=== PATIENT | female | born 1980 | race Caucasian/White ===

== ENCOUNTER 2016-08-09 17:35 | Emergency (ER) | payer MEDICAID ==
[2016-08-09 18:14] LABS: BASOPHILS 0.3 % (0.0-2.0); EOSINOPHILS 1.6 % (0-7); HEMATOCRIT 33.2 % (36.0-48.0); HEMOGLOBIN 9.6 g/dL (12-16); IMMATURE GRANULOCYTES 0.5 % (0-5); LYMPHOCYTES 21.8 % (15-50); MCH 20.9 pg (26.0-34.0); MCHC 28.9 g/dL (31.0-37.0); MCV 72.3 fL (80.0-100.0); MEAN PLATELET VOLUME 10.3 fL (7.4-10.4); MONOCYTES 8.5 % (2-11); NEUTROPHILS 67.3 % (40-80); RBC 4.59 10x6/uL (4.00-5.40); RDW 17.2 % (11.5-14.5); WBC 14.7 10x3/uL (4.8-10.8)
[2016-08-09 18:15] LABS: PLATELET COUNT 418 10x3/uL (130-400)
[2016-08-09 18:16] LABS: APPEARANCE HAZY (CLEAR); BILIRUBIN NEGATIVE (NEGATIVE); COLOR YELLOW (YELLOW); GLUCOSE NEGATIVE (NEGATIVE); KETONE NEGATIVE (NEGATIVE); LEUKOCYTE ESTERASE TRACE (NEGATIVE); NITRITE NEGATIVE (NEGATIVE); PROTEIN NEGATIVE (NEGATIVE); UROBILINOGEN NORMAL (NORMAL)
[2016-08-09 18:20] LABS: BACTERIA MODERATE /hpf (NONE SEEN); HYALINE CAST OCC /lpf (NONE SEEN); MUCUS <1+ /lpf (NONE SEEN); RED CELLS - URINE RARE /hpf (0-5); WHITE CELLS - URINE OCC /hpf (0-5)
[2016-08-09 18:27] LABS: ALKALINE PHOSPHATASE 59 U/L (46-116); ALT (SGPT) 16 U/L (10-68); BILIRUBIN - TOTAL 0.51 mg/dL (0.2-1.3); CALC OSMOLALITY 276 mosm/kg (275-300); CALCIUM 8.1 mg/dL (8.5-10.1); CARBON DIOXIDE 29.5 mmol/L (21.0-32.0); CHLORIDE - SERUM 101 mmol/L (98-107); CREATININE - SERUM 0.8 mg/dL (0.6-1.3); GLUCOSE 111 mg/dL (74-106); POTASSIUM - SERUM 3.6 mmol/L (3.5-5.1); PROTEIN - SERUM 7.8 g/dL (6.4-8.2); SODIUM 138 mmol/L (136-145); UREA NITROGEN 12 mg/dL (7-18); eGFR NON AFRICAN AMERICAN 86 mL/min (90-120)
== END 2016-08-09 20:45 | disposition home or self-care (01) ==
LOC: D.ER 17:35
PROVIDERS: Emergency Medicine
DX: K43.9 Ventral hernia without obstruction or gangrene (principal)

== ENCOUNTER 2016-09-01 17:15 | Emergency (ER) | payer MEDICAID ==
[2016-09-01 18:12] LABS: APPEARANCE CLEAR (CLEAR); BILIRUBIN NEGATIVE (NEGATIVE); COLOR YELLOW (YELLOW); GLUCOSE NEGATIVE (NEGATIVE); KETONE NEGATIVE (NEGATIVE); LEUKOCYTE ESTERASE NEGATIVE (NEGATIVE); NITRITE NEGATIVE (NEGATIVE); PROTEIN NEGATIVE (NEGATIVE); UROBILINOGEN NORMAL (NORMAL)
[2016-09-01 18:13] LABS: BASOPHILS 0.2 % (0.0-2.0); EOSINOPHILS 1.1 % (0-7); HEMOGLOBIN 9.7 g/dL (12-16); IMMATURE GRANULOCYTES 0.4 % (0-5); LYMPHOCYTES 19.1 % (15-50); MCH 20.5 pg (26.0-34.0); MCHC 29.4 g/dL (31.0-37.0); MCV 69.8 fL (80.0-100.0); MONOCYTES 8.2 % (2-11); PLATELET COUNT 393 10x3/uL (130-400); RBC 4.73 10x6/uL (4.00-5.40); RDW 17.3 % (11.5-14.5); WBC 12.3 10x3/uL (4.8-10.8)
[2016-09-01 19:00] LABS: ALKALINE PHOSPHATASE 58 U/L (46-116); ALT (SGPT) 16 U/L (10-68); CALC OSMOLALITY 277 mosm/kg (275-300); CARBON DIOXIDE 30.8 mmol/L (21.0-32.0); CHLORIDE - SERUM 101 mmol/L (98-107); CREATININE - SERUM 0.9 mg/dL (0.6-1.3); GLUCOSE 95 mg/dL (74-106); POTASSIUM - SERUM 3.7 mmol/L (3.5-5.1); PROTEIN - SERUM 7.9 g/dL (6.4-8.2); SODIUM 140 mmol/L (136-145); UREA NITROGEN 11 mg/dL (7-18); eGFR NON AFRICAN AMERICAN 75 mL/min (90-120)
== END 2016-09-01 21:09 | disposition home or self-care (01) ==
LOC: D.ER 17:15
PROVIDERS: Emergency Medicine Emergency Medical Services
DX: R10.12 Left upper quadrant pain (principal); K43.9 Ventral hernia without obstruction or gangrene; F17.200 Nicotine dependence, unspecified, uncomplicated

== ENCOUNTER → 2016-09-04 14:29 | Outpatient (CLI) | payer MEDICAID | END | disposition home or self-care (01) | LOC: D.MRI 10:30 | DX: R51 Headache (principal) ==

== ENCOUNTER 2016-10-12 05:12 | Emergency (ER) | payer MEDICAID ==
[2016-10-12 05:38] LABS: BASOPHILS 0.3 % (0.0-2.0); EOSINOPHILS 1.5 % (0-7); HEMATOCRIT 29.5 % (36.0-48.0); HEMOGLOBIN 8.4 g/dL (12-16); IMMATURE GRANULOCYTES 0.4 % (0-5); MCH 19.9 pg (26.0-34.0); MCHC 28.5 g/dL (31.0-37.0); MCV 69.7 fL (80.0-100.0); MEAN PLATELET VOLUME 9.9 fL (7.4-10.4); MONOCYTES 7.7 % (2-11); NEUTROPHILS 64.1 % (40-80); PLATELET COUNT 353 10x3/uL (130-400); RBC 4.23 10x6/uL (4.00-5.40); RDW 18.2 % (11.5-14.5); WBC 11.3 10x3/uL (4.8-10.8)
[2016-10-12 06:05] LABS: ALBUMIN 3.5 g/dL (3.4-5.0); ALKALINE PHOSPHATASE 53 U/L (46-116); ALT (SGPT) 13 U/L (10-68); BILIRUBIN - TOTAL 0.39 mg/dL (0.2-1.3); CALC OSMOLALITY 279 mosm/kg (275-300); CALCIUM 7.8 mg/dL (8.5-10.1); CARBON DIOXIDE 26.1 mmol/L (21.0-32.0); CHLORIDE - SERUM 105 mmol/L (98-107); CREATININE - SERUM 0.8 mg/dL (0.6-1.3); GLUCOSE 108 mg/dL (74-106); POTASSIUM - SERUM 3.6 mmol/L (3.5-5.1); SODIUM 140 mmol/L (136-145); UREA NITROGEN 12 mg/dL (7-18); eGFR NON AFRICAN AMERICAN 86 mL/min (90-120)
[2016-10-12 06:11] LABS: CKMB 0.5 U/L (0.0-3.6); CREATINE KINASE 86 UL (21-215); TROPONIN-I < 0.017 ng/mL (0.000-0.060)
== END 2016-10-12 06:20 | disposition home or self-care (01) ==
LOC: D.ER 05:12
PROVIDERS: Surgery
DX: R07.89 Other chest pain (principal); E87.6 Hypokalemia

== ENCOUNTER 2016-11-05 00:23 | Emergency (ER) | payer MEDICAID ==
[2016-11-05 01:03] LABS: HEMATOCRIT 34.4 % (36.0-48.0); HEMOGLOBIN 10.1 g/dL (12-16); LYMPHOCYTES 28.9 % (15-50); MCH 20.4 pg (26.0-34.0); MCHC 29.4 g/dL (31.0-37.0); MCV 69.6 fL (80.0-100.0); MEAN PLATELET VOLUME 9.6 fL (7.4-10.4); NEUTROPHILS 62.5 % (40-80); RBC 4.94 10x6/uL (4.00-5.40); RDW 20.4 % (11.5-14.5); WBC 11.3 10x3/uL (4.8-10.8)
[2016-11-05 01:06] LABS: PLATELET COUNT 447 10x3/uL (130-400)
[2016-11-05 01:07] LABS: APPEARANCE CLEAR (CLEAR); BILIRUBIN NEGATIVE (NEGATIVE); COLOR STRAW (YELLOW); GLUCOSE NEGATIVE (NEGATIVE); KETONE NEGATIVE (NEGATIVE); LEUKOCYTE ESTERASE NEGATIVE (NEGATIVE); NITRITE NEGATIVE (NEGATIVE); PH 6.5 (5.0-6.0); PROTEIN NEGATIVE (NEGATIVE); SPECIFIC GRAVITY 1.015 (1.005-1.020); UROBILINOGEN NORMAL (NORMAL)
[2016-11-05 01:35] LABS: ANION GAP 13.9 mmol/L (8-16); BILIRUBIN - TOTAL 0.42 mg/dL (0.2-1.3); CALCIUM 9.7 mg/dL (8.5-10.1); CARBON DIOXIDE 27.1 mmol/L (21.0-32.0); PROTEIN - SERUM 7.9 g/dL (6.4-8.2)
[2016-11-05 03:37] LABS: T4 THYROXIN - FREE 1.19 ng/dL (0.76-1.46); T4 THYROXINE 9.6 ug/dL (4.7-13.3); THYROID STIMULATING HORMONE 3.81 uIU/mL (0.36-3.74)
== END 2016-11-05 04:40 | disposition home or self-care (01) ==
LOC: D.ER 00:23
PROVIDERS: Emergency Medicine Emergency Medical Services
DX: D64.9 Anemia, unspecified (principal); F17.200 Nicotine dependence, unspecified, uncomplicated

== ENCOUNTER 2016-12-14 22:16 | Emergency (ER) | payer MEDICAID ==
[2016-12-14 23:11] LABS: BASOPHILS 0.3 % (0-2); EOSINOPHILS 1.4 % (0-7); HEMATOCRIT 38.8 % (36.0-48.0); HEMOGLOBIN 11.9 g/dL (12-16); IMMATURE GRANULOCYTES 0.2 % (0-5); LYMPHOCYTES 25.6 % (15-50); MCH 24.3 pg (26.0-34.0); MCHC 30.7 g/dL (31.0-37.0); MCV 79.2 fL (80.0-100.0); MEAN PLATELET VOLUME 10.6 fL (7.4-10.4); MONOCYTES 6.1 % (2-11); NEUTROPHILS 66.4 % (40-80); RDW 22.4 % (11.5-14.5); WBC 11.3 10x3/uL (4.8-10.8)
[2016-12-14 23:13] LABS: PLATELET COUNT 312 10x3/uL (130-400)
[2016-12-14 23:23] LABS: ALBUMIN 3.6 g/dL (3.4-5.0); ALKALINE PHOSPHATASE 54 U/L (46-116); ALT (SGPT) 17 U/L (10-68); CALC OSMOLALITY 273 mosm/kg (275-300); CALCIUM 8.2 mg/dL (8.5-10.1); CARBON DIOXIDE 28.9 mmol/L (21.0-32.0); CHLORIDE - SERUM 103 mmol/L (98-107); CREATININE - SERUM 0.8 mg/dL (0.6-1.3); GLUCOSE 99 mg/dL (74-106); POTASSIUM - SERUM 3.8 mmol/L (3.5-5.1); PROTEIN - SERUM 7.2 g/dL (6.4-8.2); SODIUM 138 mmol/L (136-145); UREA NITROGEN 7 mg/dL (7-18); eGFR NON AFRICAN AMERICAN 86 mL/min (90-120)
== END 2016-12-15 00:29 | disposition home or self-care (01) ==
LOC: D.ER 22:16
PROVIDERS: Family Medicine
DX: E83.51 Hypocalcemia (principal)

== ENCOUNTER 2017-02-26 00:47 | Emergency (ER) | payer MEDICAID ==
[2017-02-26 01:20] LABS: BASOPHILS 0.3 % (0-2); EOSINOPHILS 1.5 % (0-7); HEMATOCRIT 38.7 % (36.0-48.0); HEMOGLOBIN 12.6 g/dL (12-16); IMMATURE GRANULOCYTES 0.8 % (0-5); LYMPHOCYTES 28.4 % (15-50); MCH 27.1 pg (26.0-34.0); MCHC 32.6 g/dL (31.0-37.0); MCV 83.2 fL (80.0-100.0); MEAN PLATELET VOLUME 10.6 fL (7.4-10.4); MONOCYTES 7.2 % (2-11); NEUTROPHILS 61.8 % (40-80); PLATELET COUNT 309 10x3/uL (130-400); RBC 4.65 10x6/uL (4.00-5.40); RDW 14.8 % (11.5-14.5); WBC 11.3 10x3/uL (4.8-10.8)
[2017-02-26 01:29] LABS: ALBUMIN 3.9 g/dL (3.4-5.0); ANION GAP 8.5 mmol/L (8-16); BILIRUBIN - TOTAL 0.71 mg/dL (0.2-1.3); CALCIUM 8.5 mg/dL (8.5-10.1); CARBON DIOXIDE 31.7 mmol/L (21.0-32.0); CREATININE - SERUM 1.1 mg/dL (0.6-1.3); POTASSIUM - SERUM 3.2 mmol/L (3.5-5.1); PROTEIN - SERUM 7.5 g/dL (6.4-8.2)
[2017-02-26 02:08] LABS: APPEARANCE HAZY (CLEAR); BILIRUBIN NEGATIVE (NEGATIVE); COLOR DK YELLOW (YELLOW); GLUCOSE NEGATIVE (NEGATIVE); KETONE NEGATIVE (NEGATIVE); LEUKOCYTE ESTERASE TRACE (NEGATIVE); NITRITE NEGATIVE (NEGATIVE); PROTEIN NEGATIVE (NEGATIVE); UROBILINOGEN NORMAL (NORMAL)
[2017-02-26 02:09] LABS: BACTERIA FEW /hpf (NONE SEEN); MUCUS >1+ /lpf (NONE SEEN); RED CELLS - URINE 0-5 /hpf (0-5); WHITE CELLS - URINE 0-5 /hpf (0-5)
== END 2017-02-26 02:24 | disposition home or self-care (01) ==
LOC: D.ER 00:47
PROVIDERS: Emergency Medicine
DX: R51 Headache (principal); R55 Syncope and collapse; E87.6 Hypokalemia

== ENCOUNTER 2017-03-27 00:04 | Emergency (ER) | payer MEDICAID ==
[2017-03-27 00:56] LABS: BASOPHILS 0.2 % (0-2); EOSINOPHILS 1.8 % (0-7); HEMATOCRIT 37.9 % (36.0-48.0); HEMOGLOBIN 12.1 g/dL (12-16); IMMATURE GRANULOCYTES 0.5 % (0-5); LYMPHOCYTES 29.6 % (15-50); MCH 27.6 pg (26.0-34.0); MCHC 31.9 g/dL (31.0-37.0); MCV 86.5 fL (80.0-100.0); MEAN PLATELET VOLUME 10.8 fL (7.4-10.4); NEUTROPHILS 60.9 % (40-80); PLATELET COUNT 317 10x3/uL (130-400); RBC 4.38 10x6/uL (4.00-5.40); RDW 14.8 % (11.5-14.5); WBC 11.6 10x3/uL (4.8-10.8)
[2017-03-27 01:23] LABS: ALBUMIN 3.5 g/dL (3.4-5.0); ALKALINE PHOSPHATASE 45 U/L (46-116); ALT (SGPT) 17 U/L (10-68); BILIRUBIN - TOTAL 0.31 mg/dL (0.2-1.3); CALC OSMOLALITY 280 mosm/kg (275-300); CALCIUM 8.2 mg/dL (8.5-10.1); CARBON DIOXIDE 30.9 mmol/L (21.0-32.0); CHLORIDE - SERUM 105 mmol/L (98-107); CREATININE - SERUM 1.2 mg/dL (0.6-1.3); GLUCOSE 97 mg/dL (74-106); SODIUM 141 mmol/L (136-145); UREA NITROGEN 13 mg/dL (7-18); eGFR NON AFRICAN AMERICAN 54 mL/min (90-120)
[2017-03-27 01:32] LABS: CREATINE KINASE 61 UL (21-215); TROPONIN-I < 0.017 ng/mL (0.000-0.060)
== END 2017-03-27 02:13 | disposition home or self-care (01) ==
LOC: D.ER 00:04
PROVIDERS: Emergency Medicine
DX: R07.9 Chest pain, unspecified (principal); F17.200 Nicotine dependence, unspecified, uncomplicated

== ENCOUNTER 2017-07-02 13:58 | Emergency (ER) | payer MEDICAID ==
[2017-07-02 14:41] LABS: APPEARANCE CLEAR (CLEAR); BILIRUBIN NEGATIVE (NEGATIVE); COLOR STRAW (YELLOW); GLUCOSE NEGATIVE (NEGATIVE); KETONE NEGATIVE (NEGATIVE); NITRITE NEGATIVE (NEGATIVE); PROTEIN NEGATIVE (NEGATIVE); SPECIFIC GRAVITY 1.015 (1.005-1.020); UROBILINOGEN NORMAL (NORMAL)
[2017-07-02 15:08] LABS: BASOPHILS 0.2 % (0-2); EOSINOPHILS 0.5 % (0-7); HEMATOCRIT 40.6 % (36.0-48.0); HEMOGLOBIN 13.7 g/dL (12-16); IMMATURE GRANULOCYTES 0.4 % (0-5); LYMPHOCYTES 16.8 % (15-50); MCH 29.3 pg (26.0-34.0); MCHC 33.7 g/dL (31.0-37.0); MCV 86.9 fL (80.0-100.0); MEAN PLATELET VOLUME 10.6 fL (7.4-10.4); MONOCYTES 7.9 % (2-11); NEUTROPHILS 74.2 % (40-80); PLATELET COUNT 314 10x3/uL (130-400); RBC 4.67 10x6/uL (4.00-5.40); WBC 14.3 10x3/uL (4.8-10.8)
[2017-07-02 15:40] LABS: ALBUMIN 4.1 g/dL (3.4-5.0); ANION GAP 13.4 mmol/L (8-16); BILIRUBIN - TOTAL 0.47 mg/dL (0.2-1.3); CALCIUM 9.8 mg/dL (8.5-10.1); CARBON DIOXIDE 29.6 mmol/L (21.0-32.0); PROTEIN - SERUM 7.8 g/dL (6.4-8.2)
== END 2017-07-02 16:52 | disposition home or self-care (01) ==
LOC: D.ER 13:58
PROVIDERS: Family Medicine
DX: K21.9 Gastro-esophageal reflux disease without esophagitis (principal); K46.9 Unspecified abdominal hernia without obstruction or gangrene; R11.0 Nausea

== ENCOUNTER 2017-09-10 06:51 | Day surgery (SDC) | payer MEDICAID ==
[2017-09-09 14:25] LABS: BASOPHILS 0.3 % (0-2); EOSINOPHILS 0.5 % (0-7); HEMOGLOBIN 13.7 g/dL (12-16); IMMATURE GRANULOCYTES 0.5 % (0-5); LYMPHOCYTES 17.5 % (15-50); MCH 28.8 pg (26.0-34.0); MCHC 33.4 g/dL (31.0-37.0); MCV 86.1 fL (80.0-100.0); MEAN PLATELET VOLUME 10.6 fL (7.4-10.4); MONOCYTES 3.3 % (2-11); NEUTROPHILS 77.9 % (40-80); PLATELET COUNT 340 10x3/uL (130-400); RBC 4.76 10x6/uL (4.00-5.40); RDW 13.1 % (11.5-14.5); WBC 15.4 10x3/uL (4.8-10.8)
[2017-09-09 14:44] LABS: ANION GAP 9.2 mmol/L (8-16); CALCIUM 9.1 mg/dL (8.5-10.1); CARBON DIOXIDE 30.7 mmol/L (21.0-32.0); CREATININE - SERUM 1.1 mg/dL (0.6-1.3); POTASSIUM - SERUM 3.9 mmol/L (3.5-5.1)
--- NOTE | ~2017-09-10 | OP ---
PATIENT NAME: NATANAEL DREW MEDICAL RECORD: [id number] :80 LOCATION:D.MS [facility] ADMISSION DATE:09/10/17 SURGEON: ROBY CAMPOS MD DATE OF OPERATION: 09/10/2017 PREOPERATIVE DIAGNOSES: 1. Recurrent ventral hernia. 2. Hypertension. 3. Hypothyroidism. 4. Hypocalcemia. 5. Tobacco dependence syndrome. 6. Morbid obesity with a BMI of 39. POSTOPERATIVE DIAGNOSES: 1. Recurrent ventral hernia. 2. Hypertension. 3. Hypothyroidism. 4. Hypocalcemia. 5. Tobacco dependence syndrome. 6. Morbid obesity with a BMI of 39. PROCEDURE: Ventral hernia repair with 15 x [address] mesh. SURGEON: Roby Campos MD REPORT OF PROCEDURE: The patient's abdomen was prepped and draped in sterile fashion. A midline incision was made at the level of the umbilicus and down the midline towards the pubic region. Electrocautery was used to dissect through the subcutaneous tissues and we encountered the large hernia sac. The hernia sac was penetrated and we immediately encountered some small bowel. As we opened up this hernia sac, we could see there was a large opening present. We were able to place a small bowel back into the abdominal cavity. There were a total of 4 hernia defects present. The largest one was right middle and house most of the small bowel, just this one was probably about 5-6 cm in greatest diameter. Just below it, there was about a 3-cm hernia defect in the midline and just above it, there were 2 defects that were right by each other, each one about 2 cm in diameter. This fascial bridges between all of these were opened up and the total length of the fascial defect at this time was 14 cm. We freed up the fascia above and below and took down any fatty tissue, which was present. At this point, we had good clear area for placement of our mesh, 15 x [address] mesh was inserted and sutured down on all 4 sides with multiple interrupted 0 Prolene. After we irrigated out the wound, then we reapproximated the fascia in the midline using running looped 0 PDS. There was good approximation of the fascia. We then irrigated out the wound one last time and assured there was no sign of any bleeding. A 19-Japanese Ole drain was inserted in the right lower quadrant and placed in the subcutaneous pouch. This was sutured into place with 4-0 nylon. We then closed the subcutaneous tissues with interrupted 3-0 Vicryls and the skin was then closed with hany. Prior to closure, we did have a tap block of the fascial tissues using a total of 10 mL of 0.25% Marcaine with epinephrine. The wound was then dressed appropriately. COMPLICATIONS: None. CONDITION: Stable. OPERATIVE REPORT [id number] NATANAEL DREW ANESTHESIA: General endotracheal and local. BLOOD LOSS: 30 mL. TRANSINT:[id number] Voice Confirmation ID: [id number] DOCUMENT ID: [id number] ROBY CAMPOS MD at 0931 CC: TEJA ART MD [id number] DICTATION DATE: 09/10/17 1114 EYELET OPERATOR: 09/10/17 1145 ADM IN [facility] [address] [place] [address]
[~2017-09-10 06:51] MED LIST: ROCALTROL0.25 MCG PO; SYNTHROID125 MCG PO; TUMS X-STR300 MG PO
[2017-09-10 08:21] VITALS: BP 123/84; BMI 39.0
[2017-09-10 10:01] LABS: HCG URINE NEGATIVE (NEGATIVE)
[2017-09-10] MEDS ORDERED: HYDROCODONE-APA1 TAB PO (11:06)
[2017-09-10] MEDS ORDERED: CYCLOBENZAPRINE10 MG PO (11:07)
[2017-09-10 17:55] VITALS: BP 121/77; BMI 38.5
[2017-09-10 22:13] VITALS: BP 113/66
[2017-09-11 01:16] VITALS: BP 130/76
[2017-09-11 05:14] VITALS: BP 115/73
[2017-09-11 08:19] VITALS: BP 139/74
== END 2017-09-11 10:57 | disposition home or self-care (01) ==
LOC: OBSVTIME → D.OPS 06:51 → D.MS 16:32 → OBSVTIME 16:32 → D.MS 09-11 10:57 → D.OPS 09-11 10:57
PROVIDERS: Surgery
DX: K43.9 Ventral hernia without obstruction or gangrene (principal); I10 Essential (primary) hypertension; E03.9 Hypothyroidism, unspecified; E83.51 Hypocalcemia; F17.200 Nicotine dependence, unspecified, uncomplicated; E66.01 Morbid (severe) obesity due to excess calories; Z68.39 Body mass index [BMI] 39.0-39.9, adult; Z01.812 Encounter for preprocedural laboratory examination

== ENCOUNTER 2017-09-11 22:00 | Emergency (ER) | payer MEDICAID ==
[2017-09-10 17:55] VITALS: BMI 38.5
[~2017-09-11 22:00] MED LIST changes: +CYCLOBENZAPRINE10 MG PO; +HYDROCODONE-APA1 TAB PO
[2017-09-11 22:50] LABS: APPEARANCE CLEAR (CLEAR); BILIRUBIN NEGATIVE (NEGATIVE); COLOR YELLOW (YELLOW); GLUCOSE NEGATIVE (NEGATIVE); KETONE NEGATIVE (NEGATIVE); NITRITE NEGATIVE (NEGATIVE); PROTEIN NEGATIVE (NEGATIVE); SPECIFIC GRAVITY 1.025 (1.005-1.020); UROBILINOGEN NORMAL (NORMAL)
[2017-09-11 22:57] LABS: BASOPHILS 0.1 % (0-2); EOSINOPHILS 0.2 % (0-7); HEMOGLOBIN 13.2 g/dL (12-16); IMMATURE GRANULOCYTES 0.5 % (0-5); LYMPHOCYTES 17.6 % (15-50); MCH 28.3 pg (26.0-34.0); MCHC 32.2 g/dL (31.0-37.0); MCV 87.8 fL (80.0-100.0); MEAN PLATELET VOLUME 10.7 fL (7.4-10.4); NEUTROPHILS 74.6 % (40-80); PLATELET COUNT 368 10x3/uL (130-400); RBC 4.67 10x6/uL (4.00-5.40); RDW 13.5 % (11.5-14.5); WBC 19.5 10x3/uL (4.8-10.8)
[2017-09-11 23:09] LABS: BILIRUBIN - TOTAL 0.87 mg/dL (0.2-1.3); CALCIUM 10.3 mg/dL (8.5-10.1); CARBON DIOXIDE 30.6 mmol/L (21.0-32.0); CREATININE - SERUM 1.1 mg/dL (0.6-1.3); POTASSIUM - SERUM 3.6 mmol/L (3.5-5.1); PROTEIN - SERUM 7.9 g/dL (6.4-8.2)
== END 2017-09-12 01:38 | disposition home or self-care (01) ==
LOC: D.ER 22:00
PROVIDERS: Emergency Medicine
DX: G89.18 Other acute postprocedural pain (principal); K21.9 Gastro-esophageal reflux disease without esophagitis

== ENCOUNTER → 2017-09-28 11:15 | Outpatient (CLI) | payer MEDICAID ==
[2017-09-10 17:55] VITALS: BMI 38.5
== END | disposition home or self-care (01) ==
LOC: D.CT 11:15
DX: R10.9 Unspecified abdominal pain (principal)

== ENCOUNTER 2017-09-30 05:30 | Outpatient (CLI) | payer MEDICAID ==
[~2017-09-30] VITALS: Ht 157.5 cm; Wt 100.9 kg
[2017-09-30 07:26] VITALS: BP 111/73; Ht 157.5 cm; Wt 100.9 kg
[2017-09-30 07:45] LABS: HCG URINE NEGATIVE (NEGATIVE)
[2017-09-30 07:45] LABS: BASOPHILS 0.6 % (0-2); HEMATOCRIT 33.7 % (36.0-48.0); HEMOGLOBIN 10.8 g/dL (12-16); IMMATURE GRANULOCYTES 0.6 % (0-5); LYMPHOCYTES 20.8 % (15-50); MCH 27.8 pg (26.0-34.0); MCV 86.6 fL (80.0-100.0); MEAN PLATELET VOLUME 10.3 fL (7.4-10.4); MONOCYTES 8.1 % (2-11); NEUTROPHILS 64.9 % (40-80); PLATELET COUNT 370 10x3/uL (130-400); RBC 3.89 10x6/uL (4.00-5.40); RDW 12.8 % (11.5-14.5); WBC 8.7 10x3/uL (4.8-10.8)
[2017-09-30 08:01] LABS: INR 0.94 (0.85-1.17); PROTIME 12.2 SECONDS (11.6-15.0)
[2017-09-30 08:02] LABS: APTT 34.7 SECONDS (22.8-39.4)
[2017-09-30 08:11] LABS: ANION GAP 12.1 mmol/L (8-16); CALCIUM 9.1 mg/dL (8.5-10.1); CARBON DIOXIDE 29.5 mmol/L (21.0-32.0); CREATININE - SERUM 1.1 mg/dL (0.6-1.3); POTASSIUM - SERUM 3.6 mmol/L (3.5-5.1)
== END 2017-09-30 14:00 | disposition home or self-care (01) ==
LOC: D.SP 05:30
PROVIDERS: Specialist; Surgery
DX: L02.211 Cutaneous abscess of abdominal wall (principal); R10.9 Unspecified abdominal pain; Z01.812 Encounter for preprocedural laboratory examination

== ENCOUNTER 2017-11-16 12:17 | Emergency (ER) | payer MEDICAID ==
[2017-09-30 07:26] VITALS: BMI 40.7
[2017-11-16 13:43] LABS: BASOPHILS 0.3 % (0-2); EOSINOPHILS 1.6 % (0-7); HEMATOCRIT 38.7 % (36.0-48.0); HEMOGLOBIN 12.6 g/dL (12-16); IMMATURE GRANULOCYTES 0.3 % (0-5); LYMPHOCYTES 26.1 % (15-50); MCH 27.8 pg (26.0-34.0); MCHC 32.6 g/dL (31.0-37.0); MCV 85.2 fL (80.0-100.0); MEAN PLATELET VOLUME 10.6 fL (7.4-10.4); MONOCYTES 8.1 % (2-11); NEUTROPHILS 63.6 % (40-80); PLATELET COUNT 335 10x3/uL (130-400); RBC 4.54 10x6/uL (4.00-5.40); RDW 13.1 % (11.5-14.5); WBC 10.6 10x3/uL (4.8-10.8)
[2017-11-16 14:09] LABS: HCG SERUM NEGATIVE (NEGATIVE)
[2017-11-16 14:43] LABS: APPEARANCE CLEAR (CLEAR); COLOR YELLOW (YELLOW)
[2017-11-16 14:44] LABS: BILIRUBIN NEGATIVE (NEGATIVE); GLUCOSE NEGATIVE (NEGATIVE); KETONE NEGATIVE (NEGATIVE); NITRITE NEGATIVE (NEGATIVE); PROTEIN NEGATIVE (NEGATIVE); UROBILINOGEN NORMAL (NORMAL)
[2017-11-16 14:45] LABS: BACTERIA FEW /hpf (NONE SEEN); RED CELLS - URINE OCC /hpf (0-5); WHITE CELLS - URINE OCC /hpf (0-5)
[2017-11-16 16:09] LABS: ALBUMIN 4.1 g/dL (3.4-5.0); ANION GAP 13.7 mmol/L (8-16); BILIRUBIN - TOTAL 0.6 mg/dL (0.2-1.3); CALCIUM 9.6 mg/dL (8.5-10.1); CARBON DIOXIDE 29.5 mmol/L (21.0-32.0); CREATININE - SERUM 1.2 mg/dL (0.6-1.3); POTASSIUM - SERUM 4.2 mmol/L (3.5-5.1); PROTEIN - SERUM 7.6 g/dL (6.4-8.2)
== END 2017-11-16 15:38 | disposition home or self-care (01) ==
LOC: D.ER 12:17
PROVIDERS: Family Medicine; Physician Assistant
DX: R10.32 Left lower quadrant pain (principal); K21.9 Gastro-esophageal reflux disease without esophagitis; F17.200 Nicotine dependence, unspecified, uncomplicated

== ENCOUNTER 2018-01-28 11:30 | Emergency (ER) | payer MEDICAID ==
[~2018-01-28] VITALS: Ht 157.5 cm; Wt 97.3 kg
[2018-01-28 11:35] VITALS: Ht 157.5 cm; Wt 97.3 kg
[2018-01-28 12:07] LABS: BASOPHILS 0.2 % (0-2); EOSINOPHILS 1.2 % (0-7); HEMATOCRIT 39.8 % (36.0-48.0); IMMATURE GRANULOCYTES 0.3 % (0-5); LYMPHOCYTES 20.5 % (15-50); MCH 27.6 pg (26.0-34.0); MCHC 32.7 g/dL (31.0-37.0); MCV 84.5 fL (80.0-100.0); MEAN PLATELET VOLUME 11.1 fL (7.4-10.4); MONOCYTES 6.9 % (2-11); NEUTROPHILS 70.9 % (40-80); PLATELET COUNT 335 10x3/uL (130-400); RBC 4.71 10x6/uL (4.00-5.40); RDW 14.1 % (11.5-14.5); WBC 13.1 10x3/uL (4.8-10.8)
[2018-01-28 12:24] LABS: ALBUMIN 3.9 g/dL (3.4-5.0); ALKALINE PHOSPHATASE 62 U/L (46-116); ALT (SGPT) 15 U/L (10-68); BILIRUBIN - TOTAL 0.47 mg/dL (0.2-1.3); CALC OSMOLALITY 278 mosm/kg (275-300); CALCIUM 8.5 mg/dL (8.5-10.1); CARBON DIOXIDE 32.3 mmol/L (21.0-32.0); CHLORIDE - SERUM 105 mmol/L (98-107); CREATININE - SERUM 0.9 mg/dL (0.6-1.3); GLUCOSE 78 mg/dL (74-106); POTASSIUM - SERUM 3.8 mmol/L (3.5-5.1); PROTEIN - SERUM 7.8 g/dL (6.4-8.2); SODIUM 141 mmol/L (136-145); UREA NITROGEN 9 mg/dL (7-18); eGFR NON AFRICAN AMERICAN 75 mL/min (90-120)
[2018-01-28 12:36] LABS: CKMB 0.1 U/L (0.0-3.6)
[2018-01-28 12:44] LABS: TROPONIN-I < 0.017 ng/mL (0.000-0.060)
[2018-01-28] MEDS ORDERED: OMEPRAZOLE40 MG PO (14:35)
[2018-01-28 15:32] VITALS: BP 131/79
== END 2018-01-28 15:26 | disposition home or self-care (01) ==
LOC: D.ER 11:30
PROVIDERS: Emergency Medicine
DX: R07.9 Chest pain, unspecified (principal); K21.9 Gastro-esophageal reflux disease without esophagitis; R11.0 Nausea; F17.200 Nicotine dependence, unspecified, uncomplicated

== ENCOUNTER → 2018-03-12 09:12 | Outpatient (CLI) | payer MEDICAID ==
[2018-01-28 11:35] VITALS: BMI 39.2
[~2018-03-12 09:12] MED LIST changes: +OMEPRAZOLE40 MG PO
== END | disposition home or self-care (01) ==
LOC: D.US 09:12
DX: R10.12 Left upper quadrant pain (principal)

== ENCOUNTER 2018-05-10 18:53 | Emergency (ER) | payer MEDICAID ==
[~2018-05-10] VITALS: Ht 157.5 cm; Wt 100.0 kg
[2018-05-10 18:58] VITALS: Ht 157.5 cm; Wt 100.0 kg
[2018-05-10 19:38] LABS: BASOPHILS 0.2 % (0-2); EOSINOPHILS 1.4 % (0-7); HEMATOCRIT 38.4 % (36.0-48.0); HEMOGLOBIN 12.4 g/dL (12-16); IMMATURE GRANULOCYTES 0.7 % (0-5); LYMPHOCYTES 20.2 % (15-50); MCH 28.4 pg (26.0-34.0); MCHC 32.3 g/dL (31.0-37.0); MCV 87.9 fL (80.0-100.0); MEAN PLATELET VOLUME 10.8 fL (7.4-10.4); MONOCYTES 7.8 % (2-11); NEUTROPHILS 69.7 % (40-80); PLATELET COUNT 316 10x3/uL (130-400); RBC 4.37 10x6/uL (4.00-5.40); RDW 13.5 % (11.5-14.5); WBC 13.6 10x3/uL (4.8-10.8)
[2018-05-10 19:47] LABS: APPEARANCE CLEAR (CLEAR); BILIRUBIN NEGATIVE (NEGATIVE); COLOR YELLOW (YELLOW); GLUCOSE NEGATIVE (NEGATIVE); KETONE NEGATIVE (NEGATIVE); NITRITE NEGATIVE (NEGATIVE); PROTEIN NEGATIVE (NEGATIVE); UROBILINOGEN NORMAL (NORMAL)
[2018-05-10 19:57] LABS: HCG SERUM NEGATIVE (NEGATIVE)
[2018-05-10 19:59] LABS: ALBUMIN 3.7 g/dL (3.4-5.0); BILIRUBIN - TOTAL 0.25 mg/dL (0.2-1.3); CALCIUM 8.5 mg/dL (8.5-10.1); CARBON DIOXIDE 31.7 mmol/L (21.0-32.0); MAGNESIUM - SERUM 1.9 mg/dL (1.8-2.4); POTASSIUM - SERUM 3.7 mmol/L (3.5-5.1); PROTEIN - SERUM 7.6 g/dL (6.4-8.2)
[2018-05-10 23:00] VITALS: BP 151/85
== END 2018-05-10 23:00 | disposition home or self-care (01) ==
LOC: D.ER 18:53
PROVIDERS: Family Medicine
DX: E83.51 Hypocalcemia (principal); F17.200 Nicotine dependence, unspecified, uncomplicated

== ENCOUNTER 2018-06-15 20:33 | Emergency (ER) | payer MEDICAID ==
[~2018-06-15] VITALS: Ht 157.5 cm; Wt 100.0 kg
[2018-06-15 20:39] VITALS: BP 147/98; Ht 157.5 cm; Wt 100.0 kg
[2018-06-15] MEDS ORDERED: VOLTAREN75 MG PO (21:17)
[2018-06-15] MEDS ORDERED: VIBRAMYCIN 100100 MG PO (21:17)
== END 2018-06-15 21:29 | disposition home or self-care (01) ==
LOC: D.ER 20:33
DX: L03.317 Cellulitis of buttock (principal)

== ENCOUNTER 2018-09-20 02:34 | Observation (INO) | payer MEDICAID ==
[~2018-09-20] VITALS: Ht 157.5 cm; Wt 94.1 kg
--- NOTE | ~2018-09-20 | HEMODYNAMI ---
PATIENT:NATANAEL DREW MEDICAL RECORD: [id number] : 80 [id number] ADMISSION DATE: 09/20/18 Generatedon:09/20/201819:02 Patient name: NATANAEL DREW Patient #: [id number] SSN: : 1980 Date of study: 09/20/2018 Page: Of Hemodynamic Procedure Report Patient Data Patient Demographics Procedure consent was obtained First Name: NATANAEL Gender: Female Last Name: VIKI : 1980 Middle Initial: LANRE Age: 38 year(s) Patient #: [id number] Race: Additional ID: [id number] Contact details Address: [address] [place] [address] State: [place] City: [place] Zip code: [address] Admission Admission Data Admission Date: 09/20/2018 Admission Time: 4:25 Arrival Date: 09/20/2018 Arrival Time: 0:00 Admit Source: Other Insurance Payor: Medicaid Room #: D.1209 Height (in.): 61.81 BSA: 1.94 (m2) Height (cm.): 157 BMI: 38.14 (kg/m2) Weight (lbs.): 207.24 Weight (kg.): 94 Lab Results Lab Result Date: 09/20/2018 Lab Result Time: 0:00 Biochemistry Name Units Result Min Max BUN mg/dl 7 --(*---)-- 7 18 Creatinine mg/dl 1.2 --(---*)-- 0.6 1.3 CBC Name Units Result Min Max Hemoglobin g/dl 10.7 *-(----)-- 13.5 17.5 Procedure Procedure Types Cath Procedure Diagnostic Procedure [facility] w/Coronaries Procedure Description Procedure Date Procedure Date: 09/20/2018 Procedure Start Time: 18:54 Procedure End Time: 18:59 Procedure Staff Name Function Lenin Perez MD Performing Physician Bay Zhao RT Monitor Magy Zimmer RT Scrub Brayan Tim RN Nurse Procedure Data Cath Procedure Fluoroscopy Diagnostic fluoroscopy Total fluoroscopy Time: 0.7 time: 0.7 min min Diagnostic fluoroscopy Total fluoroscopy dose: 288 dose: 288 mGy mGy Contrast Material Contrast Material Type Amount (ml) Isovue 300 31 Entry Location Entry Primary Successful Side Size Upsize Upsize Entry Closure Holguin ccessful Closure Location (Fr) 1 (Fr) 2 (Fr) Remarks Device Remarks Radial Right 6 Fr Mechanical artery Short Compression Estimated blood loss: 10 ml Diagnostic catheters Device Type Used For End Catheter Placement DIAGNOSTIC [place] 110cm 5 Procedure Fr catheter ([id number]) Procedure Complications No complications Procedure Medications Medication Administration Route Dosage Oxygen etCO2 Nasal cannula 2 l/min Heparin Flush Bag added to field 2 bags (1000units/500ml NS) 0.9% NaCl I.V. 100 ml/hr Lidocaine 2% added to field 20 Radial Cocktail added to field 1 syringe (Verapomil 2mg/Nitro 400mcg/Heparin 1500units) Fentanyl I.V. 50 mcg Versed I.V. 1 mg Fentanyl I.V. 50 mcg Versed I.V. 1 mg Radial Cocktail I.A. 1 syringe (Verapomil 2mg/Nitro 400mcg/Heparin 1500units) Fentanyl I.V. 50 mcg Fentanyl I.V. 50 mcg Hemodynamics Rest BSA: 1.94 (m2) HGB: 10.7 (g/dl) O2 Consumption: Estimated: 199.57 (ml/min) O2 Co nsumption indexed: Estimated:102.87 (ml/min/m) Heart Rate: 71 (bpm) Snapshots Pre Cath Intra NCS Post Cath Vital Signs Time Heart Resp SPO2 etCO2 NIBP (mmHg) Rhythm Pain Sedation Rate (ipm) (%) (mmHg) Status Level (bpm) 18:47:01 71 16 95 0 144/93(115) NSR 0 (11) 10(A) , No pain 18:51:13 62 17 100 0 154/92(109) NSR 0 (11) 10(A) , No pain 18:55:27 55 17 100 0 138/86(109) NSR 0 (11) 10(A) , No pain 18:59:06 69 17 98 0 132/80(105) NSR 0 (11) 9(A) , No pain Medications Time Medication Route Dose Verified Delivered Reason Notes Effectiveness by by 18:48:36 Oxygen etCO2 2 l/min Lenin Schmidt Per Nasal Chris Tim RN physician cannula 18:48:45 Heparin Flush added 2 bags Lenin Franky used for Bag to Chris Tim RN procedure (1000units/500ml field NS) 18:48:53 0.9% NaCl I.V. 100 Leniniraj Schmidt Per ml/hr Chris Tim RN physician 18:49:02 Lidocaine 2% added 20ml Lenin Schmidt used for to vial Chris Tim RN procedure field 18:49:09 Radial Cocktail added 1 Lenin Brayan used for (Verapomil to syringe Chris Tim RN procedure 2mg/Nitro field 400mcg/Heparin 1500units) 18:49:16 Fentanyl I.V. 50 mcg Lenin Schmidt for sedation Chris Tim RN 18:49:23 Versed I.V. 1 mg Lenin Schmidt for sedation Chris Tim RN 18:51:02 Fentanyl I.V. 50 mcg Lenin Schmidt for sedation Chris Tim RN 18:51:06 Versed I.V. 1 mg Lenin Schmidt for sedation Chris Tim RN 18:56:06 Radial Cocktail I.A. 1 Lenin Phelps for (Verapomil syringe Chris Perez MD vasodilation 2mg/Nitro 400mcg/Heparin 1500units) 18:56:12 Fentanyl I.V. 50 mcg Lenin Schmidt for sedation Chris Tim RN 18:56:57 Fentanyl I.V. 50 mcg Lenin Schmidt for sedation Chris Tim RN Procedure Log Time Note 18:28:00 Informed consent obtained and on chart 18:28:21 Brayan Tim RN sent for patient. Start room use. 18:28:22 Time tracking: Regular hours (M-F 7:00 - 5:00) 18:28:26 Plan of Care:Hemodynamics will remain stable., Cardiac rhythm will remain stable., Comfort level will be maintained., Respiratory function will remain adequate., Patient/ family verbilizes understanding of procedure., Procedure tolerated without complication., Recovers from procedure without complications.. 18:37:03 Lab Result : BUN 7 mg/dl 18:37:03 Lab Result : Hemoglobin 10.7 g/dl 18:37:03 Lab Result : Creatinine 1.2 mg/dl 18:38:21 Admit Source: Other 18:38:27 Patient Height : 61.81 inches 18:38:51 Patient Weight : 207.24 lbs 18:38:55 Arrival Date: 09/20/2018 12:00:00 AM 18:39:01 Insurance Payor : Medicaid 18:40:08 Patient received from Med II to CCL 1 Alert and oriented. Tansferred to table in Supine position. 18:40:09 Warm blankets applied, and elba hugger turned on for patient comfort. 18:40:09 Correct patient and procedure confirmed by team. 18:40:10 ECG and BP/O2 sat monitors applied to patient. 18:45:42 Vital chart was started 18:45:43 Baseline sample Acquired. 18:45:46 Rhythm: sinus rhythm 18:45:47 Full Disclosure recording started 18:45:51 H&P Date Dictated: 09/20/2018 New H&P dictated by physician.. 18:45:53 Pre-procedure instructions explained to patient. 18:45:53 Pre-op teaching completed and patient verbalized understanding. 18:45:54 Family in waiting room. 18:45:56 Patient NPO since Midnight. 18:45:58 Is the patient allergic to Iodine/contrast media? No. 18:45:59 Was the patient premedicated? No 18:46:02 Is patient on blood thinner?No 18:46:04 Patient diabetic? No. 18:46:06 Previous problem with sedation/anesthesia? No ? 18:46:08 Snore? Yes 18:46:09 Sleep apnea? No 18:46:10 Deviated septum? No 18:46:10 Opens mouth fully? Yes 18:46:11 Sticks out tongue? Yes 18:46:13 Airway obstruction? No ? 18:46:16 Dentures? Yes out 18:46:20 Pre procedure: right dorsailis pedis pulse 2+ Normal; easily identifiable; not easily obliterated 18:46:22 Pre procedure: left dorsailis pedis pulse 2+ Normal; easily identifiable; not easily obliterated 18:46:24 Patient pain scale 0/10 ?. 18:46:35 IV patent on arrival in Left upper arm with 0.9% NaCl at [facility]. 18:46:37 Lab results completed and on chart. 18:46:41 Right Radial & Right Groin area was prepped with chlora-prep and draped in sterile fashion 18:46:42 Alarms reviewed by R. N. 18:46:42 Sharps counted by scrub and verified by R.N. 18:46:44 Physician arrived 18:46:44 --------ALL STOP TIME OUT------ 18:46:45 Final Timeout: patient, procedure, and site verified with staff and physician. All members of the team are in agreement. 18:46:46 Right Radial & Right Groin site verified by team. 18:46:50 Maximum allowable Isovue 370 dose 300ml. Physician notified. (300ml for normal creatinines. For patients with creatinine of 1.7 or higher multiply weight(kg) x 5 divided by creatinine.) 18:46:54 Fire Safety Assessment: A--An alcohol-based skin anteseptic being used preoperatively., C--Open oxygen or nitrous oxide is being used., D--An ESU, laser, or fiber-optic light is being used. 18:46:58 Physical assessment completed. ASA score P 2 - A patient with mild systemic disease as per Lenin Perez MD. 18:47:01 Sedation plan: IV Moderate Sedation Medication:Versed, Fentanyl 18:48:36 Oxygen 2 l/min etCO2 Nasal cannula was administered by Brayan Tim RN; Per physician; 18:48:45 Heparin Flush Bag (1000units/500ml NS) 2 bags added to field was administered by Brayan Tim RN; used for procedure; 18:48:53 0.9% NaCl 100 ml/hr I.V. was administered by Brayan Tim RN; Per physician; 18:49:02 Lidocaine 2% 20ml vial added to field was administered by Brayan Tim RN; used for procedure; 18:49:09 Radial Cocktail (Verapomil 2mg/Nitro 400mcg/Heparin 1500units) 1 syringe added to field was administered by Brayan Tim RN; used for procedure; 18:49:16 Fentanyl 50 mcg I.V. was administered by Brayan Tim RN; for sedation; 18:49:23 Versed 1 mg I.V. was administered by Brayan Tim RN; for sedation; 18:51:02 Fentanyl 50 mcg I.V. was administered by Brayan Tim RN; for sedation; 18:51:06 Versed 1 mg I.V. was administered by Brayan Tim RN; for sedation; 18:54:03 Zero performed for pressure channel P1 18:54:08 Procedure started. 18:54:12 Local anesthetic to right radial artery with Lidocaine 2% by Lenin Perez MD.INITIAL ACCESS ONLY 18:56:06 Radial Cocktail (Verapomil 2mg/Nitro 400mcg/Heparin 1500units) 1 syringe I.A. was administered by Lenin Perez MD; for vasodilation; 18:56:12 Fentanyl 50 mcg I.V. was administered by Brayan Tim RN; for sedation; 18:56:23 A 6 Fr Short sheath was inserted into the Right Radial artery 18:56:28 Use device set Radial Dx or PCI 18:56:30 ACIST Manifold (99271) opened to sterile field. 18:56:31 Tegaderm 4 x 4 (1626W) opened to sterile field. 18:56:32 ACIST Hand Control (36842) opened to sterile field. 18:56:33 ACIST Syringe (64079) opened to sterile field. 18:56:33 Medline Cath Pack ([id number]) opened to sterile field. 18:56:33 Bag Decanter (2002) opened to sterile field. 18:56:34 DIAGNOSTIC WIRE .035 260cm J wire (254239) opened to sterile field. 18:56:34 MBrace Wrist Support ([id number]) opened to sterile field. 18:56:36 SHEATH 6FR Slender (80-9032) opened to sterile field. 18:56:39 A DIAGNOSTIC [place] 110cm 5 Fr catheter (887738) was advanced over the wire and used for Procedure. 18:56:44 LV angiography performed. 18:56:45 LV gram done using ALFARO 18:56:50 EF : 60 % 18:56:53 Injector settings: Ml/sec: 7, Volume: 15, 18:56:57 Fentanyl 50 mcg I.V. was administered by Brayan Tim RN; for sedation; 18:57:11 LCA angiography performed. 18:57:13 RCA angiography performed. 18:57:28 Catheter removed. 18:57:29 TR BAND Standard ([id number]) opened to sterile field. 18:57:40 Sheath removed intact; hemostasis achieved with Mechanical Compression to the Right Radial artery. 18:57:43 Procedure ended.(Physican Out) 18:58:12 Fluoroscopy time 00.70 minutes. 18:58:16 Fluoroscopy dose: 288 mGy 18:58:16 Flurop Dose total: 288 18:58:21 Contrast amount:Isovue 300 31ml. 18:58:22 Sharps counted by scrub and verified by R.N. 18:58:26 TR band inflated with 10cc of air. 18:58:31 Insertion/operative site no bleeding no hematoma. 18:58:33 Post Procedure Pulses reassessed and unchanged 18:58:36 Post-procedure physical assessment completed. ASA score P 2 - A patient with mild systemic disease as per Lenin Perez MD. 18:58:38 Post procedure rhythm: unchanged. 18:58:40 Estimated blood loss: 10 ml 18:58:43 Post procedure instruction explained to patient.Patient verbalizes understanding. 18:58:43 Patient needs reinforcement of post procedure teaching. 18:58:49 Procedure and supply charges have been captured, reviewed, submitted and are correct. 18:58:52 Procedure Complication : No complications 18:58:54 Vital chart was stopped 18:58:55 See physician's report for complete and final results. 18:58:59 Report given to Other. 18:59:02 Patient transfered to Other with Bed. 18:59:04 Procedure ended. 18:59:04 Full Disclosure recording stopped 18:59:44 End room use (Document Last) Device Usage Item Name Manufacture Quantity Catalog Hospital Part Current Minimal Lot# / Number Charge Number Stock Stock Serial# Code ACIST Acist 1 95905 404521 713207 097163 5 Manifold Medical (30882) Systems Inc Tegaderm 4 3M 1 1626W 835317 499735 850640 5 x 4 (1626W) ACIST Hand Acist 1 11059 787260 679920 801310 5 Control Medical (51414) Systems Inc ACIST Acist 1 35677 740475 817417 082410 20 Syringe Medical (39315) Systems Inc Medline Medline 1 [id number] 644293 67754 159260 5 Cath Pack ([id number]) Bag Microtek 1 2001S 9423717 54868 197057 5 Decanter Medical Inc. (2002S) DIAGNOSTIC [facility] [place] 1 552329 677878 582129 770235 30 WIRE .035 260cm J wire (498427) MBrace Advanced 1 140-0250-00 589941 74415 135751 5 Wrist Vascular Support Dynamics (275895033) SHEATH 6FR Terumo 1 [id number] 404358 268387 819814 5 Slender (80-1060) DIAGNOSTIC Terumo 1 40-8583 143711 935061 727498 5 [place] 110cm 5 Fr catheter (537190) TR BAND Terumo 1 [id number] 206177 730104 454340 40 Standard ([id number]) Signature Audit [place] Stage Time Signature Unsigned Intra-Procedure 09/20/2018 Bay Zhao 7:01:59 PM RT(R) Signatures Monitor : Bay Zhao RT Signature : Date : Time : [place] [address] [place] [address]
--- NOTE | ~2018-09-20 | EC ---
PATIENT:NATANAEL DREW DATE OF SERVICE: 09/20/18 SEX: F MEDICAL RECORD: [id number] DATE OF : [birth year] LOCATION:D.M3 D.120 AGE OF PATIENT: 38 ADMISSION DATE: 09/20/18 REFERRING PHYSICIAN: INTERPRETING PHYSICIAN: ISAAC PEREZ MD ECHOCARDIOGRAM REPORT ECHO CHARGES 4 ECHO COMPLETE Date: 09/20/18 CLINICAL DIAGNOSIS: SOB/HTN ECHOCARDIOGRAPHIC MEASUREMENTS (adult normal given) AC root (d.<3.7cm) 2.9 cm LV Septum d (<1.2 cm> 1.5 cm Valve Excursion 1.9 cm LV Septum (systole) 1.4 cm Left Atria (s.<4.0cm> 3.2 cm LVPW d(<1.2cm) 1.7 cm RV (d.<2.3cm) 3.5 cm LVPW (sytole) 1.7 cm LV diastole(<5.6CM) 4.4 cm MV E-F(>70mm/sec) cm LV systole 2.7 cm LVOT Diameter 2.0 cm MV exc.(>10mm) 1.5 cm Est.ejection fraction (50-75%) % DOPPLER: LVIT cm/sec A 59.0 cm/sec E 730 cm/sec LA cm/sec RVSP 17 mmHg LVOT 111 cm/sec AOP1/2T m/s Asc. Ao 137 cm/sec RVOT 93 cm/sec RA cm/sec PA 96 cm/sec AV Gradient Peak 7.51 mmHg AV Mean 4.04 mmHg AV Area 2.7 cm MV Gradient Peak 4.45 mmHg MV Mean 1.85 mmHg MV Area cm COMMENTS: Cashier And Waiter/Waitress: Liana LAU Button Tufter: 1 Dr. Perez TAPE# PACS Pericardial Effusion N DATE OF SERVICE: 09/20/2018 FINDINGS: 1. Left ventricular chamber size is within normal limits. Left ventricular systolic function is normal. Overall ejection fraction is estimated at 60%. 2. Left atrium, right atrium, and right ventricle chamber sizes are within normal limit. 3. Valvular structures have normal structure and motion. 4. Doppler interrogation reveals no significant valvular insufficiency or stenosis. ECHOCARDIOGRAM REPORT [id number] NATANAEL DREW 5. No evidence of pericardial effusion or left ventricular thrombus. TRANSINT:[id number] Voice Confirmation ID: [id number] DOCUMENT ID: [id number] ISAAC PEREZ MD CC: [id number] DICTATION DATE: 09/20/18 1633 RAILCAR SWITCHMAN: 09/20/18 1904 ADM IN [facility] [address] [place] [address]
--- NOTE | ~2018-09-20 | OP ---
PATIENT NAME: NATANAEL DREW MEDICAL RECORD: [id number] :80 LOCATION:D.M3 D.1209 ADMISSION DATE:09/20/18 SURGEON: ISAAC CASON MD DATE OF OPERATION: 09/20/2018 PROCEDURES: 1. Left heart catheterization. 2. Selective coronary angiography. 3. Left ventriculogram. INDICATIONS: Chest discomfort. PROCEDURE IN DETAIL: After informed consent was obtained and after a detailed description of the risks and benefits as well as alternative therapies, the patient elected to proceed with angiogram and heart catheterization. The right radial area was prepped and draped in normal sterile fashion. Right radial artery was cannulated via modified Seldinger technique with placement of 5-Namibian sheath. All catheters were exchanged through this sheath. FINDINGS: Left ventriculogram was performed in standard 30-degree ALFARO view, reveals good cardiac wall motion throughout all segments. Overall ejection fraction estimated at 60%. SELECTIVE CORONARY ANGIOGRAPHY: Left main, left anterior descending, left circumflex, and right coronary artery are all smooth-walled vessels with no angiographic evidence of coronary artery disease. OVERALL IMPRESSION: 1. No angiographic evidence of coronary artery disease. 2. Normal left heart pressures. 3. Normal left ventricular systolic function. 4. Chest pain is noncardiac in etiology. 5. No further cardiac workup needs to be ascertained. TRANSINT:[id number] Voice Confirmation ID: [id number] DOCUMENT ID: [id number] ISAAC CASON MD CC: [id number] DICTATION DATE: 09/20/18 190 WAITER: 09/21/18 0120 DIS IN 09/20/18 [facility] [address] [place] [address]
--- NOTE | ~2018-09-20 | DS ---
PATIENT:NATANAEL DREW :80 MEDICAL RECORD: [id number] DISCHARGE SUMMARY ADMISSION DATE: 09/20/18 DISCHARGE DATE: 09/20/18 DATE OF DISCHARGE: 09/20/2018 DIAGNOSIS: Noncardiac chest pain. HISTORY OF PRESENT ILLNESS: Mrs. Drew presents with chest pain; however, cardiac catheterization is normal. Discharged home with no cardiac followup necessary. Follow up with her primary care physician. TRANSINT:[id number] Voice Confirmation ID: [id number] DOCUMENT ID: [id number] ISAAC CASON MD CC: [id number] DICTATION DATE: 09/20/18 190 HEPATOLOGIST: 09/21/18 0730 DIS IN 09/20/18 [place] [id number] [place] [id number]
[~2018-09-20 02:34] MED LIST changes: +VIBRAMYCIN 100100 MG PO; +VOLTAREN75 MG PO
[2018-09-20 03:13] LABS: BASOPHILS 0.2 % (0-2); EOSINOPHILS 1.4 % (0-7); HEMATOCRIT 34.1 % (36.0-48.0); HEMOGLOBIN 10.7 g/dL (12-16); IMMATURE GRANULOCYTES 0.5 % (0-5); LYMPHOCYTES 25.9 % (15-50); MCH 25.1 pg (26.0-34.0); MCHC 31.4 g/dL (31.0-37.0); MEAN PLATELET VOLUME 10.7 fL (7.4-10.4); MONOCYTES 8.2 % (2-11); NEUTROPHILS 63.8 % (40-80); PLATELET COUNT 328 10x3/uL (130-400); RBC 4.26 10x6/uL (4.00-5.40); RDW 15.4 % (11.5-14.5); WBC 11.8 10x3/uL (4.8-10.8)
[2018-09-20 03:18] LABS: APTT 30.1 SECONDS (22.8-39.4); INR 1.04 (0.85-1.17); PROTIME 13.1 SECONDS (11.6-15.0)
[2018-09-20 03:25] LABS: ALBUMIN 3.6 g/dL (3.4-5.0); ALKALINE PHOSPHATASE 57 U/L (46-116); ALT (SGPT) 10 U/L (10-68); BILIRUBIN - TOTAL 0.32 mg/dL (0.2-1.3); CALC OSMOLALITY 282 mosm/kg (275-300); CALCIUM 9.5 mg/dL (8.5-10.1); CARBON DIOXIDE 28.3 mmol/L (21.0-32.0); CHLORIDE - SERUM 105 mmol/L (98-107); CREATININE - SERUM 1.2 mg/dL (0.6-1.3); GLUCOSE 90 mg/dL (74-106); POTASSIUM - SERUM 3.6 mmol/L (3.5-5.1); PROTEIN - SERUM 7.4 g/dL (6.4-8.2); SODIUM 143 mmol/L (136-145); UREA NITROGEN 7 mg/dL (7-18); eGFR NON AFRICAN AMERICAN 53 mL/min (90-120)
[2018-09-20 03:35] VITALS: BP 147/98
[2018-09-20 03:36] LABS: CKMB 0.1 U/L (0.0-3.6); CREATINE KINASE 42 UL (21-215); MAGNESIUM - SERUM 1.9 mg/dL (1.8-2.4)
[2018-09-20 03:37] LABS: TROPONIN-I < 0.017 ng/mL (0.000-0.060)
[2018-09-20 03:43] LABS: HCG SERUM NEGATIVE (NEGATIVE)
--- NOTE | 2018-09-20 03:50 | NUR ---
PT C/O BILAT ARM NUMBNESS AND TINGLING DOWN TO HANDS. PT BECAME TACHYCARDIC DURING EPISODE. PT INSTRUCTED TO TAKE DEEP BREATHS. EDP NOTIFIED.
--- NOTE | 2018-09-20 03:59 | NUR ---
PT HAS CALMED DOWN AT THIS TIME. PT FAMILY AT BEDSIDE.
--- NOTE | 2018-09-20 05:36 | NUR ---
ADDED PATIENT TO TELE WAIT LIST. NO MONITORS AVAILABLE AT THIS TIME.
[2018-09-20] MEDS ORDERED: VITAMIN D31000 UNIT PO (05:58)
[2018-09-20] MEDS ORDERED: FERROUS SULFAT325 MG PO ×2 (05:59)
[2018-09-20 06:10] VITALS: BP 130/89; Ht 157.5 cm; Wt 94.1 kg
[2018-09-20 07:54] VITALS: BP 111/63
[2018-09-20 09:01] LABS: HCG SERUM NEGATIVE (NEGATIVE)
[2018-09-20] MEDS ORDERED: LEVOTHYROXINE137 MCG PO (09:07)
--- NOTE | 2018-09-20 10:54 | HP ---
PATIENT: NATANAEL DREW MEDICAL RECORD: [id number] ACCOUNT: [id number] LOCATION:[address] : [birth year] ADMISSION DATE: 09/20/18 PCP: VIGNESH PECK MD HISTORY AND PHYSICAL EXAMINATION DIAGNOSES: 1. Chest pain compatible with angina. 2. Abnormal stress test. 3. Anxiety disorder. 4. Family history of coronary artery disease. 5. Hypothyroidism, on replacement. HISTORY OF PRESENT ILLNESS: Mrs. Drew has no history of ischemic heart disease. She has been having chest discomfort. She saw Dr. Holt and test was performed, this was abnormal. She now continues to have chest pain. PHYSICAL EXAMINATION: GENERAL APPEARANCE: Well-nourished, well-developed, appears stated age. Level of distress, comfortable. PSYCHIATRIC: Mental status, alert, normal affect. Orientation, oriented to time, place and person. EYES: Lids and conjunctiva, noninjected. No discharge, no pallor. ENT: Lips, teeth, gums, normal dentition. Oropharynx, no cyanosis, no pallor. NECK: Carotid arteries, bilateral normal upstroke, no bruits, no thrills. JUGULAR VEINS: No jugular venous pressure or distention. CERVICAL LYMPH NODES: Nontender, nonenlarged. THYROID: Not enlarged. Nontender. No nodules. LUNGS: Respiratory effort, unlabored. CHEST: Normal curvature. No thoracic deformity. No chest wall tenderness. Percussion, resonant. Auscultation, clear. No wheezes, no rales, no rhonchi. CARDIOVASCULAR: Precordial exam, nondisplaced. No heaves or pericardial thrills. Rate and rhythm, regular. Heart sounds, normal S1, normal S2. No S3, no gallop, no rub. Systolic murmur, not heard. Diastolic murmur, not heard. EXTREMITIES: No cyanosis, no edema. Peripheral pulses, full and equal in all extremities, except as noted. No bruits appreciated. ABDOMEN: Soft, nondistended. Normal aorta. No bruit. Nontender. No masses. Liver, nontender, no hepatomegaly. Spleen, nontender, no splenomegaly. MUSCULOSKELETAL: No joint tenderness. No joint swelling. No erythema. NEUROLOGICAL: Normal gait, normal strength, normal tone. SKIN: Warm and dry. OVERALL IMPRESSION: Chest pain in an escalating fashion. We will proceed with coronary angiography. Further care depends upon the findings of the angiography. TRANSINT:[id number] Voice Confirmation ID: [id number] DOCUMENT ID: [id number] HISTORY AND PHYSICAL [id number] NATANAEL DREW JEFFREY MD at 1054 CC: [id number] DICTATION DATE: 09/20/1837 STUFFED CASING TIER: 09/20/18 0849 ADM IN [place] [address] [place] [address]
[2018-09-20 11:17] VITALS: BP 110/76
[2018-09-20 15:28] VITALS: BP 123/79
--- NOTE | 2018-09-20 16:58 | NUR ---
EXPLORATION MANAGER CALLED TO PREOP PT. UPON FLUSHING PT PIV TO LEFT FA, NOTICED IT WAS INFILTRATED. REMOVED LEFT FA PIV WITH CATHETER TIP INTACT. RESITED 20G PIV TO PT LEFT UPPER ARM X2 ATTEMPTS. PT PRE-OP ORDERED. DENIES PAIN AT THIS TIME, DENIES ANY OTHER NEEDS AT THIS TIME, WILL CONT TO FOLLOW PLAN OF CARE
[2018-09-20 21:01] VITALS: BP 123/82
--- NOTE | 2018-09-20 22:15 | NUR ---
PT SIGNED D/C PAPER, YAKOV STOKES GIVEN INSTRUCTION FOR HOME CARE PT'S CATH SITE. PT DISCHARGED TO HOME.
== END 2018-09-20 22:50 | disposition home or self-care (01) ==
LOC: D.ER 02:34 → D.EDHOLD 04:25 → OBSVTIME 04:25 → D.M3 04:25 → D.M2 04:54 → D.M3 05:12
PROVIDERS: Emergency Medicine; ADMIT Internal Medicine Interventional Cardiology; ATTEND Internal Medicine Interventional Cardiology
DX: R07.89 Other chest pain (principal); R94.39 Abnormal result of other cardiovascular function study; E03.9 Hypothyroidism, unspecified; F41.9 Anxiety disorder, unspecified; Z82.49 Family history of ischemic heart disease and other diseases of the circulatory system

== ENCOUNTER 2018-10-03 23:59 | Emergency (ER) | payer MEDICAID ==
[~2018-10-03] VITALS: Ht 157.5 cm; Wt 93.0 kg
[~2018-10-03 23:59] MED LIST changes: +FERROUS SULFAT325 MG PO; +LEVOTHYROXINE137 MCG PO; +VITAMIN D31000 UNIT PO
[2018-10-04 00:01] VITALS: Ht 157.5 cm; Wt 93.0 kg
[2018-10-04] MEDS ORDERED: VIBRAMYCIN 100100 MG PO (01:20)
[2018-10-04] MEDS ORDERED: ALBUTEROL SULF8.5 GM INH (01:20)
[2018-10-04] MEDS ORDERED: MEDROL DOSE PACK4 MG PO (01:20)
[2018-10-04] MEDS ORDERED: TESSALON PERLE100 MG PO (01:22)
[2018-10-04 01:35] LABS: BASOPHILS 0.2 % (0-2); EOSINOPHILS 1.3 % (0-7); HEMATOCRIT 31.7 % (36.0-48.0); HEMOGLOBIN 9.8 g/dL (12-16); IMMATURE GRANULOCYTES 0.4 % (0-5); LYMPHOCYTES 25.3 % (15-50); MCH 24.8 pg (26.0-34.0); MCHC 30.9 g/dL (31.0-37.0); MCV 80.3 fL (80.0-100.0); MEAN PLATELET VOLUME 10.6 fL (7.4-10.4); MONOCYTES 6.8 % (2-11); PLATELET COUNT 370 10x3/uL (130-400); RBC 3.95 10x6/uL (4.00-5.40); RDW 16.1 % (11.5-14.5); WBC 12.9 10x3/uL (4.8-10.8)
[2018-10-04 01:48] LABS: ALBUMIN 3.4 g/dL (3.4-5.0); ANION GAP 12.3 mmol/L (8-16); BILIRUBIN - TOTAL 0.35 mg/dL (0.2-1.3); CALCIUM 9.8 mg/dL (8.5-10.1); CARBON DIOXIDE 31.8 mmol/L (21.0-32.0); CREATININE - SERUM 1.2 mg/dL (0.6-1.3); PROTEIN - SERUM 6.9 g/dL (6.4-8.2)
[2018-10-04 01:54] LABS: POTASSIUM - SERUM 3.1 mmol/L (3.5-5.1)
[2018-10-04 02:34] VITALS: BP 152/90
== END 2018-10-04 02:34 | disposition home or self-care (01) ==
LOC: D.ER 23:59
PROVIDERS: Emergency Medicine
DX: J18.9 Pneumonia, unspecified organism (principal); R07.9 Chest pain, unspecified

== ENCOUNTER → 2018-10-07 14:04 | Outpatient (CLI) | payer MEDICAID ==
[2018-10-04 00:01] VITALS: BMI 37.9
[~2018-10-07 14:04] MED LIST changes: +ALBUTEROL SULF8.5 GM INH; +MEDROL DOSE PACK4 MG PO; +TESSALON PERLE100 MG PO
--- NOTE | 2018-10-12 14:26 | EC ---
PATIENT:NATANAEL DREW DATE OF SERVICE: 10/07/18 SEX: F MEDICAL RECORD: [id number] DATE OF : [birth year] LOCATION:D.[facility] AGE OF PATIENT: 38 ADMISSION DATE: 10/07/18 REFERRING PHYSICIAN: INTERPRETING PHYSICIAN: JENAE PEREZ MD ECHOCARDIOGRAM REPORT ECHO CHARGES 4 ECHO COMPLETE Date: 10/07/18 CLINICAL DIAGNOSIS: MURMUR/CP/HTN ECHOCARDIOGRAPHIC MEASUREMENTS (adult normal given) AC root (d.<3.7cm) 2.8 cm LV Septum d (<1.2 cm> 1.0 cm Valve Excursion 2.0 cm LV Septum (systole) 1.4 cm Left Atria (s.<4.0cm> 3.5 cm LVPW d(<1.2cm) 1.0 cm RV (d.<2.3cm) 2.8 cm LVPW (sytole) 1.8 cm LV diastole(<5.6CM) 5.4 cm MV E-F(>70mm/sec) cm LV systole 3.2 cm LVOT Diameter 1.8 cm MV exc.(>10mm) cm Est.ejection fraction (50-75%) % DOPPLER: LVIT cm/sec A 107 cm/sec E 120 cm/sec LA cm/sec RVSP 26.1 mmHg LVOT 109 cm/sec AOP1/2T m/s Asc. Ao 142 cm/sec RVOT 84.0 cm/sec RA cm/sec PA 98.0 cm/sec AV Gradient Peak 8.1 mmHg AV Mean 4.2 mmHg AV Area 1.9 cm MV Gradient Peak 5.0 mmHg MV Mean 2.2 mmHg MV Area cm COMMENTS: OP - HC Solar Energy Systems Engineer: Lyric THOMASOE Electronics Supervisor: 3 Dr. Holt TAPE# PACS Pericardial Effusion N DATE OF SERVICE: 10/07/2018 Adequate 2-D, color-flow and spectral Doppler, and M-mode. No LVH. LV internal dimensions are normal. Wall motion is normal. EF is greater than or equal to 55%. Aortic valve is tricuspid. No evidence of stenosis by Doppler interrogation. Left atrium is normal at 3.5 cm. Mitral valve shows no prolapse. Trace MR. Right-sided chambers are normal. Trace TR. TRANSINT:[id number] Voice Confirmation ID: [id number] DOCUMENT ID: [id number] ECHOCARDIOGRAM REPORT [id number] NATANAEL DREW,JENAE Mckinney MD at 1426 CC: [id number] DICTATION DATE: 10/07/18 1548 DIRECTOR HEMATOLOGY: 10/07/18 1709 DEP CLI 10/07/18 [place] [id number] [place] [id number]
== END | disposition home or self-care (01) ==
LOC: D.HCCARDIO 14:04
PROVIDERS: ATTEND Internal Medicine Interventional Cardiology
DX: R01.1 Cardiac murmur, unspecified (principal)

== ENCOUNTER 2018-10-31 07:56 | Emergency (ER) | payer MEDICAID ==
[~2018-10-31] VITALS: Ht 157.5 cm; Wt 93.2 kg
[2018-10-31 07:58] VITALS: Ht 157.5 cm; Wt 93.2 kg
[2018-10-31 08:16] LABS: BASOPHILS 0.4 % (0-2); EOSINOPHILS 2.1 % (0-7); HEMATOCRIT 37.2 % (36.0-48.0); HEMOGLOBIN 11.8 g/dL (12-16); IMMATURE GRANULOCYTES 0.3 % (0-5); LYMPHOCYTES 25.1 % (15-50); MCH 25.6 pg (26.0-34.0); MCHC 31.7 g/dL (31.0-37.0); MCV 80.7 fL (80.0-100.0); MEAN PLATELET VOLUME 10.4 fL (7.4-10.4); MONOCYTES 8.3 % (2-11); NEUTROPHILS 63.8 % (40-80); PLATELET COUNT 340 10x3/uL (130-400); RBC 4.61 10x6/uL (4.00-5.40); WBC 9.1 10x3/uL (4.8-10.8)
[2018-10-31 08:28] LABS: INR 1.05 (0.85-1.17); PROTIME 13.2 SECONDS (11.6-15.0)
[2018-10-31 08:34] LABS: ALBUMIN 3.6 g/dL (3.4-5.0); ANION GAP 9.6 mmol/L (8-16); BILIRUBIN - TOTAL 0.72 mg/dL (0.2-1.3); CALCIUM 10.2 mg/dL (8.5-10.1); CARBON DIOXIDE 31.6 mmol/L (21.0-32.0); CREATININE - SERUM 1.2 mg/dL (0.6-1.3); POTASSIUM - SERUM 3.2 mmol/L (3.5-5.1); PROTEIN - SERUM 7.4 g/dL (6.4-8.2)
[2018-10-31 08:45] LABS: THYROID STIMULATING HORMONE 3.22 uIU/mL (0.36-3.74)
[2018-10-31] MEDS ORDERED: NORVASC5 MG PO (09:37)
[2018-10-31 09:51] VITALS: BP 152/88
== END 2018-10-31 09:52 | disposition home or self-care (01) ==
LOC: D.ER 07:56
PROVIDERS: Family Medicine
DX: I10 Essential (primary) hypertension (principal); F41.0 Panic disorder [episodic paroxysmal anxiety]; R51 Headache

== ENCOUNTER 2018-11-11 21:43 | Emergency (ER) | payer MEDICAID ==
[~2018-11-11] VITALS: Ht 157.5 cm; Wt 92.3 kg
[~2018-11-11 21:43] MED LIST changes: +NORVASC5 MG PO
[2018-11-11 21:55] VITALS: Ht 157.5 cm; Wt 92.3 kg
[2018-11-11] MEDS ORDERED: COZAAR50 MG PO (21:59)
[2018-11-11] MEDS ORDERED: [UNRECOGNIZED DRUG - REMARK] (21:59)
[2018-11-11 23:36] LABS: HCG SERUM NEGATIVE (NEGATIVE)
[2018-11-12] MEDS ORDERED: CATAPRES0.1 MG PO (00:09)
[2018-11-12 00:15] VITALS: BP 136/96
== END 2018-11-12 00:15 | disposition home or self-care (01) ==
LOC: D.ER 21:43
PROVIDERS: Family Medicine
DX: I10 Essential (primary) hypertension (principal)

== ENCOUNTER 2018-11-12 22:55 | Emergency (ER) | payer MEDICAID ==
[~2018-11-12] VITALS: Ht 157.5 cm; Wt 95.3 kg
[~2018-11-12 22:55] MED LIST changes: +CATAPRES0.1 MG PO; +COZAAR50 MG PO; +[UNRECOGNIZED DRUG - REMARK]
[2018-11-12 23:00] VITALS: Ht 157.5 cm; Wt 95.3 kg
[2018-11-13 00:04] LABS: BASOPHILS 0.1 % (0-2); EOSINOPHILS 0.7 % (0-7); HEMATOCRIT 34.2 % (36.0-48.0); HEMOGLOBIN 10.8 g/dL (12-16); IMMATURE GRANULOCYTES 0.3 % (0-5); LYMPHOCYTES 18.4 % (15-50); MCH 25.5 pg (26.0-34.0); MCHC 31.6 g/dL (31.0-37.0); MCV 80.9 fL (80.0-100.0); MEAN PLATELET VOLUME 10.4 fL (7.4-10.4); MONOCYTES 7.1 % (2-11); NEUTROPHILS 73.4 % (40-80); PLATELET COUNT 281 10x3/uL (130-400); RBC 4.23 10x6/uL (4.00-5.40); WBC 13.5 10x3/uL (4.8-10.8)
[2018-11-13 00:14] LABS: ALBUMIN 3.4 g/dL (3.4-5.0); ANION GAP 13.2 mmol/L (8-16); BILIRUBIN - TOTAL 0.41 mg/dL (0.2-1.3); CALCIUM 8.7 mg/dL (8.5-10.1); CARBON DIOXIDE 24.5 mmol/L (21.0-32.0); CREATININE - SERUM 0.9 mg/dL (0.6-1.3); POTASSIUM - SERUM 3.7 mmol/L (3.5-5.1); PROTEIN - SERUM 6.8 g/dL (6.4-8.2)
[2018-11-13 01:04] VITALS: BP 121/69
== END 2018-11-13 01:05 | disposition home or self-care (01) ==
LOC: D.ER 22:55
PROVIDERS: Family Medicine
DX: I10 Essential (primary) hypertension (principal); R51 Headache

== ENCOUNTER 2018-11-15 14:56 | Emergency (ER) | payer MEDICAID ==
[~2018-11-15] VITALS: Ht 157.5 cm; Wt 92.3 kg
[2018-11-15 15:07] VITALS: Ht 157.5 cm; Wt 92.3 kg
[2018-11-15] MEDS ORDERED: CATAPRES TTS-10.1 MG TD (15:13)
[2018-11-15 15:47] LABS: BASOPHILS 0.2 % (0-2); EOSINOPHILS 0.8 % (0-7); HEMATOCRIT 38.4 % (36.0-48.0); HEMOGLOBIN 12.3 g/dL (12-16); IMMATURE GRANULOCYTES 0.5 % (0-5); LYMPHOCYTES 20.5 % (15-50); MCH 25.6 pg (26.0-34.0); MEAN PLATELET VOLUME 10.6 fL (7.4-10.4); RDW 16.9 % (11.5-14.5)
[2018-11-15 15:50] LABS: PLATELET COUNT 341 10x3/uL (130-400)
[2018-11-15 16:04] LABS: ANION GAP 13.2 mmol/L (8-16); BILIRUBIN - TOTAL 0.56 mg/dL (0.2-1.3); CARBON DIOXIDE 28.3 mmol/L (21.0-32.0); MAGNESIUM - SERUM 1.5 mg/dL (1.8-2.4); POTASSIUM - SERUM 3.5 mmol/L (3.5-5.1); PROTEIN - SERUM 7.8 g/dL (6.4-8.2)
[2018-11-15 17:56] VITALS: BP 130/54
== END 2018-11-15 17:56 | disposition home or self-care (01) ==
LOC: D.ER 14:56
PROVIDERS: Emergency Medicine
DX: E83.51 Hypocalcemia (principal); I10 Essential (primary) hypertension

== ENCOUNTER 2018-11-19 00:06 | Emergency (ER) | payer MEDICAID ==
[~2018-11-19] VITALS: Ht 157.5 cm; Wt 92.3 kg
[~2018-11-19 00:06] MED LIST changes: +CATAPRES TTS-10.1 MG TD
[2018-11-19 00:21] VITALS: BP 155/101; Ht 157.5 cm; Wt 92.3 kg
[2018-11-20] MEDS ORDERED: NORVASC10 MG PO (02:51)
[2018-11-20] MEDS ORDERED: ATIVAN1 MG PO (14:46)
== END 2018-11-19 01:29 | disposition left against medical advice (07) ==
LOC: D.ER 00:06
DX: I10 Essential (primary) hypertension (principal)

== ENCOUNTER 2018-11-20 00:19 | Observation (INO) | payer MEDICAID ==
[2018-11-20] VITALS (9 sets, daily range): BP systolic 106–159; BP diastolic 61–94; Ht 157.5 cm; Wt 91.4 kg
[~2018-11-20] VITALS: Ht 157.5 cm; Wt 91.4 kg
[2018-11-20 01:13] LABS: BASOPHILS 0.4 % (0-2); EOSINOPHILS 1.8 % (0-7); HEMOGLOBIN 11.2 g/dL (12-16); IMMATURE GRANULOCYTES 0.3 % (0-5); LYMPHOCYTES 29.5 % (15-50); MCH 25.3 pg (26.0-34.0); MCHC 31.1 g/dL (31.0-37.0); MCV 81.4 fL (80.0-100.0); MEAN PLATELET VOLUME 11.3 fL (7.4-10.4); MONOCYTES 7.4 % (2-11); NEUTROPHILS 60.6 % (40-80); PLATELET COUNT 281 10x3/uL (130-400); RBC 4.42 10x6/uL (4.00-5.40); RDW 16.5 % (11.5-14.5); WBC 9.9 10x3/uL (4.8-10.8)
[2018-11-20 01:25] LABS: APPEARANCE CLEAR (CLEAR); BILIRUBIN NEGATIVE (NEGATIVE); COLOR YELLOW (YELLOW); GLUCOSE NEGATIVE (NEGATIVE); KETONE NEGATIVE (NEGATIVE); NITRITE NEGATIVE (NEGATIVE); PROTEIN NEGATIVE (NEGATIVE); SPECIFIC GRAVITY 1.015 (1.005-1.020); UROBILINOGEN NORMAL (NORMAL)
[2018-11-20 01:31] LABS: ALBUMIN 3.5 g/dL (3.4-5.0); ALKALINE PHOSPHATASE 51 U/L (46-116); ALT (SGPT) 12 U/L (10-68); BILIRUBIN - TOTAL 0.46 mg/dL (0.2-1.3); CALC OSMOLALITY 279 mosm/kg (275-300); CALCIUM 8.9 mg/dL (8.5-10.1); CARBON DIOXIDE 28.8 mmol/L (21.0-32.0); CHLORIDE - SERUM 103 mmol/L (98-107); GLUCOSE 92 mg/dL (74-106); POTASSIUM - SERUM 3.7 mmol/L (3.5-5.1); SODIUM 141 mmol/L (136-145); UREA NITROGEN 9 mg/dL (7-18); eGFR NON AFRICAN AMERICAN 66 mL/min (90-120)
[2018-11-20 01:42] LABS: LIPASE 150 U/L (73-393); MAGNESIUM - SERUM 1.7 mg/dL (1.8-2.4); PRO BNP 278 pg/mL (0-125)
[2018-11-20 01:44] LABS: TROPONIN-I < 0.017 ng/mL (0.000-0.060)
--- NOTE | 2018-11-20 02:11 | NUR ---
PT IN WITH C/O LOW HEART RATE AND HYPERTENSION, STATES ITS BEEN GOING ON ALL WEEK HAS BEEN SEEN, HAS NOT GOTTEN A CAUSE.
--- NOTE | 2018-11-20 02:12 | NUR ---
WENT TO DISCHARGE PATIENT, SHE SATES SHE IS COMFORTABLE GOING HOME WITH HER HEART RATE 50, MD NOTIFIED, PATIENT TO BE ADMITTED.
--- NOTE | 2018-11-20 02:50 | NUR ---
ADMITTED FOR OBSERVATION FROM ER VIA WC TO BED 5...NO CP WORRIED ABOUT LOW HEART RATE. CO HEADACHE ASWELL ASSSESSMENT DONE BY RN. BED IS LOW AND LOCKED AND SR X2 AND CALL LIGHT PLACED IN REACH
[2018-11-20] MEDS ORDERED: NORVASC10 MG PO (02:51)
--- NOTE | 2018-11-20 03:21 | NUR ---
IV CHECKED AND NO LONGER PATENT REMOVED WITH CATH INTACT
--- NOTE | 2018-11-20 03:27 | NUR ---
ADMISSION ASSESSMENT COMPLETED. PT ALERT/ORIENTED. IV TO LEFT A/C IS NOT PATENT AND PRIMARY NURSE IS REMOVING AND WILL ATTEMPT RESITE. PLAN OF CARE INITIATED. SB 50'S PER TELEMETRY.
--- NOTE | 2018-11-20 07:15 | NUR ---
REPORT RECIEVED AND MORNING ROUNDING COMPLETE. PT LAYING IN BED, AWAKE, PT HAS NO IV ACCES AT THIS TIME. PT STATES NO NEEDS AT THIS TIME. CALL LIGHT WITHIN REACH AND BED IN LOWEST POSITION.
--- NOTE | 2018-11-20 10:53 | NUR ---
PLACED A 20 GAUGE IN PT'S LEFT FOREARM, 1 STICK PT TOLERATED WELL. CALL LIGHT WITHIN REACH AND BED IN LOWEST POSTIION. GOOD BLOOD RETURN.
--- NOTE | 2018-11-20 12:09 | NUR ---
PT LEAVING FLOOR VIA WHEELCHAIR WITH IR TECH
--- NOTE | 2018-11-20 13:39 | NUR ---
I have reviewed this patient and I concur with the Shift Assessment completed by the Licensed Practical Nurse today this shift.
[2018-11-20] MEDS ORDERED: ATIVAN1 MG PO (14:46)
--- NOTE | 2018-11-20 19:25 | NUR ---
PT IN BED. DENIES NEEDS AT THIS TIME.
--- NOTE | 2018-11-20 21:18 | NUR ---
PT STATES THAT HER MEDS ARE NOT CORRECT. SHE TAKES 3 CALCITROL BID FOR A TOTAL OF 1.5MCG DAILY. SHE ALSO DOES NOT TAKE THE FERROUS WITH THE CALCITROL. SHE TAKES THE TUMS WITH THE CALCITROL.
--- NOTE | 2018-11-21 01:57 | NUR ---
PT VOICING DISPLEASURE AT HER CURRENT MED REGIMEN PER MD. UNHAPPY WITH MED TIMES, LACK OF ATIVAN NOT STARTED AND VARIOUS OTHER ISSUES THAT ARE NOT EMERGENT IN NATURE, BUT SHE IS BECOMING VERY AGITATED ABOUT IT AT THIS TIME. PRIMARY NURSE IS PAGING GRAPPLER BIOLOGICAL SCIENCE TECHNICIAN FOR DR RALPH AND WILL DISCUSS PT'S INSISTENCE WITH NEEDING ATIVAN. OTHER MEDS WILL BE ADJUSTED PER THE TIMES THAT PATIENT SAYS SHE NORMALLY TAKES THEM, VERSUS THE TIMES THE PHARMACY SCHEDULED THEM.
--- NOTE | 2018-11-21 02:02 | NUR ---
I have reviewed this patient and I concur with the Shift Assessment completed by the Licensed Practical Nurse today this shift.
[2018-11-21 03:55] VITALS: BP 121/85
[2018-11-21 04:46] LABS: BASOPHILS 0.3 % (0-2); EOSINOPHILS 1.6 % (0-7); HEMOGLOBIN 11.1 g/dL (12-16); IMMATURE GRANULOCYTES 0.2 % (0-5); LYMPHOCYTES 28.2 % (15-50); MCH 25.8 pg (26.0-34.0); MCHC 31.7 g/dL (31.0-37.0); MCV 81.2 fL (80.0-100.0); MEAN PLATELET VOLUME 10.8 fL (7.4-10.4); MONOCYTES 7.7 % (2-11); PLATELET COUNT 247 10x3/uL (130-400); RBC 4.31 10x6/uL (4.00-5.40); RDW 16.2 % (11.5-14.5); WBC 10.2 10x3/uL (4.8-10.8)
[2018-11-21 04:59] LABS: ANION GAP 9.6 mmol/L (8-16); CALCIUM 9.5 mg/dL (8.5-10.1); CARBON DIOXIDE 32.1 mmol/L (21.0-32.0); CREATININE - SERUM 1.1 mg/dL (0.6-1.3); POTASSIUM - SERUM 3.7 mmol/L (3.5-5.1)
--- NOTE | 2018-11-21 07:32 | NUR ---
PT ASLEEP, DID NOT WAKE I ENTERED. DID NOT FURTHER DISTURB AT THIS TIME. CL IN REACH, SRX2.
[2018-11-21 08:10] VITALS: BP 114/72
--- NOTE | 2018-11-21 08:57 | NUR ---
PT STATES SHE TAKE 3 .25 CALCITROL BID, 3 TUMS (TOTALLING 6000MG) BID WITH CALCITROL.
--- NOTE | 2018-11-21 10:31 | NUR ---
PT ESCORTED OUT VIA WHEELCHAIR TO HUSBANDS POV. C/O OF THIS STAY WITH THE DRS, STATING SHE DIDNT FEEL LIKE HER PROBLEMS WERE ADRESSED. THOUGH HER HIGH B/P WAS RESOLVED ALL OTHER TESTS/SCAN WERE WITH HER NORMAL LIMITS. STATES THE NURSES AND AIDS WERE FANTASTIC AND SHE'D HAVE US ALL AGAIN. NO OTHER COMPLAINTS/CONCERNS VOICED AT THIS TIME.
--- NOTE | 2018-11-22 08:38 | MORECARE ---
CASE MANAGEMENT DISCHARGE SUMMARY PATIENT: NATANAEL DERW UNIT: [id number] ADM DATE: 11/20/18 AGE: 38 : [birth year] SEX: F ROOM/BED: D.2105 AUTHOR: YG JEAN BAPTISTE PHYSICIAN: REFERRING PHYSICIAN: SHAKA RALPH MD DATE OF SERVICE: 11/22/18 Discharge Plan Patient Name: NATANAEL DREW Facility: [facility]:[place] : 1980 Planned Disposition: Home Anticipated Discharge Date: 11/21/18 Discharge Date: 11/21/2018 Expected LOS: 1 Initial Reviewer: [id number] Initial Review Date: 11/22/2018 Generated: 11/22/18 9:38 am Patient Name: NATANAEL DREW Page [id number] at 0838 All edits/amendments must be made on the electronic document DICTATION DATE: 11/22/1837 BUSINESS ASST: OSMIN 11/22/18 0837 RPT#: [id number] DC DATE:11/21/18 STATUS: DIS IN [facility] [address] [place] [address] END OF REPORT
== END 2018-11-21 10:35 | disposition home or self-care (01) ==
LOC: D.ER 00:19 → D.M2 02:10 → OBSVTIME 02:10 → D.M2 11-21 10:35
PROVIDERS: Family Medicine; ADMIT Internal Medicine Nephrology; ATTEND Internal Medicine Nephrology
DX: R07.89 Other chest pain (principal); I10 Essential (primary) hypertension; E03.9 Hypothyroidism, unspecified; E21.3 Hyperparathyroidism, unspecified; E66.01 Morbid (severe) obesity due to excess calories; Z68.36 Body mass index [BMI] 36.0-36.9, adult; F17.213 Nicotine dependence, cigarettes, with withdrawal

== ENCOUNTER 2019-03-22 13:40 | Day surgery (SDC) | payer MEDICAID ==
[~2019-03-22] VITALS: Ht 157.5 cm; Wt 90.5 kg
[~2019-03-22 13:40] MED LIST changes: +ATIVAN1 MG PO; +NORVASC10 MG PO
--- NOTE | 2019-03-22 14:46 | NUR ---
RECEIVED PT FROM ADMISSIONS DEPT VIA WHEELCHAIR. PT SENT FROM W FOR DILATATION AND CURETTAGE. PT TO ROOM 1278. PT TO BR TO CHANGE INTO GOWN.
--- NOTE | 2019-03-22 15:30 | NUR ---
RECEIVED PT FROM ADMISSIONS DEPT VIA WHEELCHAIR TO ROOM 1278. PT SENT FROM [facility] FOR DILATATION AND CURETTAGE. PT TO BR TO CHANGE INTO GOWN.
--- NOTE | 2019-03-22 15:40 | NUR ---
PIV STARTED X 1 VENIPUNCTURE TO RIGHT HAND WITH 18 GAUGE CATHELON. LAB OBTAINED FROM SITE. LR INFUSING AT 150 ML/HR. SITE CLEAR. PT MARCELINA WELL.
[2019-03-22 15:50] VITALS: BP 109/67; Ht 157.5 cm; Wt 90.5 kg
[2019-03-22 16:02] LABS: BASOPHILS 0.2 % (0-2); EOSINOPHILS 1.2 % (0-7); HEMATOCRIT 38.5 % (36.0-48.0); IMMATURE GRANULOCYTES 0.3 % (0-5); LYMPHOCYTES 24.3 % (15-50); MCH 28.6 pg (26.0-34.0); MCHC 33.8 g/dL (31.0-37.0); MCV 84.8 fL (80.0-100.0); MEAN PLATELET VOLUME 10.4 fL (7.4-10.4); MONOCYTES 5.4 % (2-11); NEUTROPHILS 68.6 % (40-80); RBC 4.54 10x6/uL (4.00-5.40); RDW 14.7 % (11.5-14.5); WBC 12.1 10x3/uL (4.8-10.8)
[2019-03-22 16:07] LABS: PLATELET COUNT 359 10x3/uL (130-400)
[2019-03-22] MEDS ORDERED: CATAPRES0.1 MG PO (16:08)
[2019-03-22] MEDS ORDERED: TUMS X-STR300 MG PO (16:10)
[2019-03-22 16:19] LABS: HCG SERUM NEGATIVE (NEGATIVE)
--- NOTE | 2019-03-22 17:00 | NUR ---
PT OOB AND AMB TO BR TO VOID. VOIDS FREELY. PT AMB BACK TO BED. SCDS ON BLE. PT INSTRUCTED ON PURPOSE. VERBALIZES UNDERSTANDING.
[2019-03-22 17:19] VITALS: BP 120/81
--- NOTE | 2019-03-22 17:29 | NUR ---
PT TO OR VIA BED PER OR STAFF.
[2019-03-22 18:50] VITALS: BP 113/65
--- NOTE | 2019-03-22 18:50 | NUR ---
REC'D PT BACK FROM RECOVERY ROOM POST D&N FOR ABNORMAL VAG BLEEDING PER PT. PT AA&O X 4. CURRENTLY DENIES PAIN. REPORT REC'D FROM RECOVERY NURSE. VITALS SIGNS OBTAINED. SEE FLOWSHEET. PT INFORMED THAT SHE MAY BE DISCHARGED HOME IF SHE DESIRES. PT REQUEST TO REMAIN ON UNIT FOR ALLOW FOR REST. PT REQUESTING SOMETHING TO EAT AND DRINK. SANDWICH TRAY AND SPRITE SERVED. CONTINUED POC DISCUSSED W/PT. PT DENIES FURTHER NEEDS AT THIS TIME. BED LOW, SIDERAILS UP X 2. CALL LIGHT AT PT'S SIDE.
[2019-03-22 19:15] VITALS: BP 143/86
--- NOTE | 2019-03-22 19:30 | NUR ---
PT AMBULATORY [place] REPORTING SHE COULDN'T FIND HER CALL LIGHT. WHILE IN [place], Shanthi EGANRN TO PT'S ROOM TO SHOW HER THE CALL LIGHT. WHILE AT BEDSIDE, PT REQUESTING IV SITE TO BE SALINE LOCKED SO SHE MAY PUT HER BLOUSE ON BEFORE HER FAMILY ARRIVES. THIS RN TO ROOM. IV LINE DISCONTINUED FROM SALINE LOCK. PT CONTINUES TO EAT AT THIS TIME. INFORMED THAT THIS WILL RETURN AFTER SHE HAS FINISHED TO COMPLETE HER ASSESSMENT.
--- NOTE | 2019-03-22 20:41 | NUR ---
THIS RN TO BEDSIDE FOR SHIFT ASSESSMENT. PT FOUND NOT TO BE HER ROOM AT THIS TIME.
--- NOTE | 2019-03-22 21:00 | NUR ---
PT RETURNS TO ROOM AT THIS TIME, THEN AMBULTES IMMEDIATELY TO NURSING STATION TO REQUEST A DISCHARGE BECAUSE HER YOUNGEST SON WANTS HER TO GO HOME. PT INFORMED THAT DR WOODS HAD TOLD HER THAT SHE COULD GO. THIS RN WILL NOTIFY MD THAT SHE IS REQUESTING AND THEN WILL BE TO ROOM TO DO DISCHARGE. PT IS AGREEABLE.
--- NOTE | 2019-03-22 21:10 | NUR ---
SALINE LOCK DISCONTINUED INTACT. SITE WNL. BAND AID PLACED OVER SITE.
--- NOTE | 2019-03-22 22:15 | NUR ---
THIS RN TO PT'S BEDSIDE FOR SHIFT ASSESSMENT. PT IS ALREADY DRESSED AND READY FOR DISCHARGE. SHIFT ASSESSMENT COMPLETED.SEE FLOWSHEET. PT DISCHARGE TEACHING PERFORMED. PT IS BEING DISCHARGED W/INSTRUCTIONS TO CALL [facility] IN THE AM TO MAKE A FOLLOW UP APPOINTMENT W/DR WOODS. NO PRESCRIPTIONS ORDERED OR PROVIDED. PT REPORTS SHE HAS MOTRIN AND TYLENOL AT HOME AND IS ABLE TO VERBALIZE RECOMMEDED DOSING AND FREQUENCY. PT REPORTS SHE HAS HAD A D&C BEFORE AND IS AWARE OF SELF CARE AT HOME. SIGNS AND SYMPTOMS OF CONCERN DISCUSSED W/PT. PT VERBALIZES UNDERSTANDING AND IS AGREEABLE TO CALL THE MAKE UP EDITOR PHYSICIAN IS IS HAS ANY CONCERNS OVER NIGHT. DISCHARGE PAPERS SIGNED AND COPY PROVIDED TO PT. PT DISCHARGED AT THIS TIME. TRANSPORTED OFF UNIT VIA W/C TO AWAITING CAR TO BE DRIVEN HOME BY FAMILY.
--- NOTE | 2019-03-23 06:43 | OP ---
PATIENT NAME: NATANAEL DREW MEDICAL RECORD: [id number] :80 LOCATION:[id number] ADMISSION DATE:03/22/19 SURGEON: JULIAN WOODS MD DATE OF OPERATION: 03/22/2019 PREOPERATIVE DIAGNOSIS: Dysfunctional uterine bleeding. POSTOPERATIVE DIAGNOSES: 1. Dysfunctional uterine bleeding. 2. Uterine prolapse. PROCEDURES: 1. Exam under anesthesia. 2. Dilation and curettage. SURGEON: Julian Woods MD MAINTENANCE TECH: Ole Fisher. ANESTHESIA: General. FINDINGS: Uterus is slightly enlarged and sounded to 9 cm. Moderate tissue returned at the time of curettings. Good cry throughout. SPECIMENS REMOVED: Endometrial curettings. SPECIMEN DISPOSITION: Pathology. ESTIMATED BLOOD LOSS: Minimal. FLUIDS: 500 cc lactated Ringer's. URINE OUTPUT: Quantity sufficient void prior to this procedure. COMPLICATIONS: None. DRAINS: None. INDICATIONS: The patient is a 38-year-old female with menorrhagia. The patient has continued bleeding and at times bleeding through double protection. The patient was consented for a dilation and curettage. DESCRIPTION OF PROCEDURE: After informed consent was assured, the patient was taken to the operating room where anesthetic was obtained. The patient was now placed in Yellofin stirrups and prepped and draped. A speculum was introduced in the vagina and the cervix was easily visualized as it prolapses to below the hymenal ring. The patient now has the cervix dilated to accommodate a #2 sharp curette. Curettage was performed with good cry throughout. The uterus was sounded to 9 cm. The cervix is held during this procedure with the single-tooth tenaculum, which is removed and adequate hemostasis was noted. Sponge, lap, and needle counts correct times 2. The patient was awakened and went to the recovery room in stable condition. TRANSINT:[id number] Voice Confirmation ID: [id number] DOCUMENT ID: [id number] OPERATIVE REPORT [id number] VIKINATANAEL BERMEO JULIAN MARION MD at 0643 CC: [id number] DICTATION DATE: 03/22/19 1806 CHANNEL SALES MANAGER: 03/23/19 0047 DIS IN 03/22/19 [place] [id number] [place] [id number]
== END 2019-03-22 21:30 | disposition home or self-care (01) ==
LOC: D.LD 13:40 → UNDOADMIN 13:40 → D.OPS 13:40 → D.SDCHOLD 13:40 → EDSTATUS 14:00 → D.SDCHOLD 14:23 → D.LD 14:23 → D.OPS 21:30
PROVIDERS: ATTEND Obstetrics & Gynecology
DX: N93.8 Other specified abnormal uterine and vaginal bleeding (principal); N81.4 Uterovaginal prolapse, unspecified

== ENCOUNTER 2019-04-01 11:59 | Emergency (ER) | payer MEDICAID ==
[~2019-04-01] VITALS: Ht 157.5 cm; Wt 90.5 kg
[2019-04-01 12:07] VITALS: Ht 157.5 cm; Wt 90.5 kg
[2019-04-01 12:33] LABS: APPEARANCE CLEAR (CLEAR); BILIRUBIN NEGATIVE (NEGATIVE); COLOR YELLOW (YELLOW); GLUCOSE NEGATIVE (NEGATIVE); KETONE NEGATIVE (NEGATIVE); NITRITE NEGATIVE (NEGATIVE); PROTEIN NEGATIVE (NEGATIVE); UROBILINOGEN NORMAL (NORMAL)
[2019-04-01 12:39] LABS: ALBUMIN 4.1 g/dL (3.4-5.0); ANION GAP 10.5 mmol/L (8-16); BILIRUBIN - TOTAL 0.55 mg/dL (0.2-1.3); CARBON DIOXIDE 32.2 mmol/L (21.0-32.0); CREATININE - SERUM 1.6 mg/dL (0.6-1.3); POTASSIUM - SERUM 3.7 mmol/L (3.5-5.1); PROTEIN - SERUM 8.1 g/dL (6.4-8.2)
[2019-04-01 12:44] LABS: CALCIUM 12.2 mg/dL (8.5-10.1)
[2019-04-01 12:47] LABS: BASOPHILS 0.3 % (0-2); EOSINOPHILS 0.9 % (0-7); HEMATOCRIT 38.8 % (36.0-48.0); HEMOGLOBIN 13.3 g/dL (12-16); IMMATURE GRANULOCYTES 0.5 % (0-5); LYMPHOCYTES 21.4 % (15-50); MCHC 34.3 g/dL (31.0-37.0); MCV 84.5 fL (80.0-100.0); MEAN PLATELET VOLUME 11.2 fL (7.4-10.4); MONOCYTES 8.9 % (2-11); PLATELET COUNT 336 10x3/uL (130-400); RBC 4.59 10x6/uL (4.00-5.40); RDW 13.9 % (11.5-14.5); WBC 13.2 10x3/uL (4.8-10.8)
[2019-04-01 12:58] LABS: AMYLASE - SERUM 49 U/L (25-115); LIPASE 184 U/L (73-393)
[2019-04-01] MEDS ORDERED: FLORASTOR250 MG PO (14:01)
[2019-04-01] MEDS ORDERED: AUGMENTIN 875-11 TAB PO (14:01)
[2019-04-01 15:29] VITALS: BP 137/87
== END 2019-04-01 15:25 | disposition home or self-care (01) ==
LOC: D.ER 11:59
PROVIDERS: Family Medicine
DX: K65.4 Sclerosing mesenteritis (principal)

== ENCOUNTER 2019-04-04 00:01 | Emergency (ER) | payer MEDICAID ==
[~2019-04-04] VITALS: Ht 157.5 cm; Wt 90.5 kg
[~2019-04-04 00:01] MED LIST changes: +AUGMENTIN 875-11 TAB PO; +FLORASTOR250 MG PO
[2019-04-04 00:07] VITALS: Ht 157.5 cm; Wt 90.5 kg
[2019-04-04 01:03] LABS: BASOPHILS 0.3 % (0-2); EOSINOPHILS 1.2 % (0-7); HEMATOCRIT 33.4 % (36.0-48.0); HEMOGLOBIN 11.4 g/dL (12-16); IMMATURE GRANULOCYTES 0.4 % (0-5); LYMPHOCYTES 25.6 % (15-50); MCH 28.6 pg (26.0-34.0); MCHC 34.1 g/dL (31.0-37.0); MCV 83.7 fL (80.0-100.0); MEAN PLATELET VOLUME 10.6 fL (7.4-10.4); MONOCYTES 7.5 % (2-11); PLATELET COUNT 253 10x3/uL (130-400); RBC 3.99 10x6/uL (4.00-5.40); RDW 14.2 % (11.5-14.5); WBC 11.6 10x3/uL (4.8-10.8)
[2019-04-04 01:14] LABS: ALBUMIN 3.5 g/dL (3.4-5.0); ALKALINE PHOSPHATASE 58 U/L (46-116); ALT (SGPT) 25 U/L (10-68); BILIRUBIN - TOTAL 0.32 mg/dL (0.2-1.3); CALC OSMOLALITY 282 mosm/kg (275-300); CALCIUM 8.8 mg/dL (8.5-10.1); CARBON DIOXIDE 29.1 mmol/L (21.0-32.0); CHLORIDE - SERUM 104 mmol/L (98-107); CREATININE - SERUM 1.1 mg/dL (0.6-1.3); GLUCOSE 98 mg/dL (74-106); INR 1.03 (0.85-1.17); POTASSIUM - SERUM 3.6 mmol/L (3.5-5.1); PROTEIN - SERUM 6.9 g/dL (6.4-8.2); SODIUM 142 mmol/L (136-145); UREA NITROGEN 13 mg/dL (7-18); eGFR NON AFRICAN AMERICAN 59 mL/min (90-120)
[2019-04-04 01:15] LABS: APTT 30.7 SECONDS (22.8-39.4)
[2019-04-04 01:27] LABS: D-DIMER-QUANTITATIVE 0.28 ug/mLFEU (0.20-0.54)
[2019-04-04 01:50] LABS: CKMB 0.2 U/L (0.0-3.6); CREATINE KINASE 50 UL (21-215); MAGNESIUM - SERUM 1.7 mg/dL (1.8-2.4); TROPONIN-I < 0.017 ng/mL (0.000-0.060)
[2019-04-04] MEDS ORDERED: TORADOL10 MG PO (02:03)
[2019-04-04 02:26] VITALS: BP 100/76
== END 2019-04-04 02:26 | disposition home or self-care (01) ==
LOC: D.ER 00:01
PROVIDERS: Emergency Medicine
DX: R09.1 Pleurisy (principal); F17.200 Nicotine dependence, unspecified, uncomplicated; I10 Essential (primary) hypertension

== ENCOUNTER 2019-04-20 16:36 | Emergency (ER) | payer MEDICAID ==
[~2019-04-20] VITALS: Ht 157.5 cm; Wt 93.2 kg
[~2019-04-20 16:36] MED LIST changes: +TORADOL10 MG PO
[2019-04-20 16:41] VITALS: BP 135/74; Ht 157.5 cm; Wt 93.2 kg
[2019-04-20] MEDS ORDERED: ROCALTROL0.25 MCG PO (16:44)
[2019-04-20] MEDS ORDERED: BYSTOLIC5 MG PO (16:45)
[2019-04-20 17:07] LABS: BASOPHILS 0.3 % (0-2); EOSINOPHILS 1.3 % (0-7); HEMATOCRIT 38.1 % (36.0-48.0); HEMOGLOBIN 12.6 g/dL (12-16); IMMATURE GRANULOCYTES 0.5 % (0-5); LYMPHOCYTES 20.4 % (15-50); MCH 29.2 pg (26.0-34.0); MCHC 33.1 g/dL (31.0-37.0); MCV 88.2 fL (80.0-100.0); MEAN PLATELET VOLUME 10.8 fL (7.4-10.4); MONOCYTES 6.6 % (2-11); NEUTROPHILS 70.9 % (40-80); RBC 4.32 10x6/uL (4.00-5.40); RDW 13.8 % (11.5-14.5)
[2019-04-20 17:08] LABS: PLATELET COUNT 311 10x3/uL (130-400)
[2019-04-20 17:27] LABS: ALBUMIN 3.7 g/dL (3.4-5.0); ALKALINE PHOSPHATASE 59 U/L (46-116); ALT (SGPT) 16 U/L (10-68); CALC OSMOLALITY 278 mosm/kg (275-300); CALCIUM 9.3 mg/dL (8.5-10.1); CARBON DIOXIDE 31.8 mmol/L (21.0-32.0); CHLORIDE - SERUM 102 mmol/L (98-107); CREATININE - SERUM 1.1 mg/dL (0.6-1.3); GLUCOSE 89 mg/dL (74-106); POTASSIUM - SERUM 3.7 mmol/L (3.5-5.1); PROTEIN - SERUM 7.2 g/dL (6.4-8.2); SODIUM 141 mmol/L (136-145); UREA NITROGEN 10 mg/dL (7-18); eGFR NON AFRICAN AMERICAN 59 mL/min (90-120)
[2019-04-20 17:40] LABS: CKMB 0.2 U/L (0.0-3.6); CREATINE KINASE 48 UL (21-215); PRO BNP 195 pg/mL (0-125); PROTIME 12.7 SECONDS (11.6-15.0)
[2019-04-20 17:41] LABS: D-DIMER-QUANTITATIVE < 0.27 ug/mLFEU (0.20-0.54)
[2019-04-20 17:47] LABS: TROPONIN-I < 0.017 ng/mL (0.000-0.060)
[2019-04-20 17:58] LABS: APPEARANCE CLEAR (CLEAR); BILIRUBIN NEGATIVE (NEGATIVE); COLOR YELLOW (YELLOW); GLUCOSE NEGATIVE (NEGATIVE); KETONE NEGATIVE (NEGATIVE); NITRITE NEGATIVE (NEGATIVE); PROTEIN NEGATIVE (NEGATIVE); UROBILINOGEN NORMAL (NORMAL)
[2019-04-20 17:59] LABS: BACTERIA FEW /hpf (NEGATIVE); EPITHELIAL CELLS 0-5 /hpf (0-5); WHITE CELLS - URINE OCC /hpf (NEGATIVE)
[2019-04-20] MEDS ORDERED: ZPAK PO (19:55)
== END 2019-04-20 20:20 | disposition home or self-care (01) ==
LOC: D.ER 16:36
PROVIDERS: Family Medicine
DX: J20.9 Acute bronchitis, unspecified (principal)

== ENCOUNTER 2019-05-13 11:23 | Emergency (ER) | payer MEDICAID ==
[~2019-05-13] VITALS: Ht 157.5 cm; Wt 81.8 kg
[~2019-05-13 11:23] MED LIST changes: +BYSTOLIC5 MG PO; +ZPAK PO
[2019-05-13 11:35] VITALS: BP 138/79; Ht 157.5 cm; Wt 81.8 kg
[2019-05-13 11:50] LABS: BASOPHILS 0.3 % (0-2); HEMATOCRIT 41.2 % (36.0-48.0); HEMOGLOBIN 13.3 g/dL (12-16); IMMATURE GRANULOCYTES 0.3 % (0-5); LYMPHOCYTES 17.9 % (15-50); MCH 28.9 pg (26.0-34.0); MCHC 32.3 g/dL (31.0-37.0); MCV 89.6 fL (80.0-100.0); MEAN PLATELET VOLUME 10.6 fL (7.4-10.4); MONOCYTES 6.8 % (2-11); NEUTROPHILS 73.7 % (40-80); PLATELET COUNT 359 10x3/uL (130-400); RDW 13.2 % (11.5-14.5); WBC 15.2 10x3/uL (4.8-10.8)
[2019-05-13 11:59] LABS: ANION GAP 7.4 mmol/L (8-16); CALCIUM 9.6 mg/dL (8.5-10.1); CARBON DIOXIDE 32.4 mmol/L (21.0-32.0); CREATININE - SERUM 1.2 mg/dL (0.6-1.3); POTASSIUM - SERUM 3.8 mmol/L (3.5-5.1)
[2019-05-13 12:05] LABS: BILIRUBIN - TOTAL 0.57 mg/dL (0.2-1.3); PROTEIN - SERUM 7.8 g/dL (6.4-8.2)
[2019-05-13 12:22] LABS: APPEARANCE CLEAR (CLEAR); BILIRUBIN NEGATIVE (NEGATIVE); COLOR STRAW (YELLOW); GLUCOSE NEGATIVE (NEGATIVE); KETONE NEGATIVE (NEGATIVE); NITRITE NEGATIVE (NEGATIVE); PROTEIN NEGATIVE (NEGATIVE); UROBILINOGEN NORMAL (NORMAL)
[2019-05-13 12:24] LABS: HCG URINE NEGATIVE (NEGATIVE)
[2019-05-13 13:39] LABS: HCG SERUM NEGATIVE (NEGATIVE)
== END 2019-05-13 15:34 | disposition left against medical advice (07) ==
LOC: D.ER 11:23
PROVIDERS: Family Medicine
DX: R10.9 Unspecified abdominal pain (principal)

== ENCOUNTER 2019-06-13 20:47 | Emergency (ER) | payer SELFPAY ==
[~2019-06-13] VITALS: Ht 157.5 cm; Wt 93.0 kg
[2019-06-13 20:53] VITALS: Ht 157.5 cm; Wt 93.0 kg
[2019-06-13 21:45] LABS: BASOPHILS 0.1 % (0-2); EOSINOPHILS 1.5 % (0-7); HEMATOCRIT 37.9 % (36.0-48.0); HEMOGLOBIN 12.2 g/dL (12-16); IMMATURE GRANULOCYTES 0.6 % (0-5); LYMPHOCYTES 23.9 % (15-50); MCH 28.8 pg (26.0-34.0); MCHC 32.2 g/dL (31.0-37.0); MCV 89.6 fL (80.0-100.0); MEAN PLATELET VOLUME 10.3 fL (7.4-10.4); MONOCYTES 6.6 % (2-11); NEUTROPHILS 67.3 % (40-80); PLATELET COUNT 367 10x3/uL (130-400); RBC 4.23 10x6/uL (4.00-5.40); RDW 13.5 % (11.5-14.5); WBC 14.2 10x3/uL (4.8-10.8)
[2019-06-13 21:48] LABS: APTT 32.7 SECONDS (22.8-39.4); CALC OSMOLALITY 278 mosm/kg (275-300); CALCIUM 9.5 mg/dL (8.5-10.1); CARBON DIOXIDE 29.2 mmol/L (21.0-32.0); CHLORIDE - SERUM 103 mmol/L (98-107); CREATININE - SERUM 0.8 mg/dL (0.6-1.3); GLUCOSE 91 mg/dL (74-106); INR 0.97 (0.85-1.17); POTASSIUM - SERUM 3.4 mmol/L (3.5-5.1); PROTIME 12.4 SECONDS (11.6-15.0); SODIUM 141 mmol/L (136-145); UREA NITROGEN 8 mg/dL (7-18); eGFR NON AFRICAN AMERICAN 85 mL/min (90-120)
[2019-06-13 21:50] LABS: APPEARANCE CLEAR (CLEAR); BILIRUBIN NEGATIVE (NEGATIVE); COLOR YELLOW (YELLOW); GLUCOSE NEGATIVE (NEGATIVE); KETONE NEGATIVE (NEGATIVE); NITRITE NEGATIVE (NEGATIVE); PROTEIN NEGATIVE (NEGATIVE); UROBILINOGEN NORMAL (NORMAL)
[2019-06-13 22:04] LABS: ALBUMIN 3.6 g/dL (3.4-5.0); ALKALINE PHOSPHATASE 60 U/L (46-116); ALT (SGPT) 19 U/L (10-68); CKMB 0.1 U/L (0.0-3.6); CREATINE KINASE 55 UL (21-215); MAGNESIUM - SERUM 1.8 mg/dL (1.8-2.4); PROTEIN - SERUM 7.5 g/dL (6.4-8.2)
[2019-06-13 22:06] LABS: TROPONIN-I < 0.017 ng/mL (0.000-0.060)
[2019-06-14 01:14] LABS: CREATINE KINASE 52 UL (21-215)
[2019-06-14 01:15] LABS: TROPONIN-I < 0.017 ng/mL (0.000-0.060)
[2019-06-14 01:50] VITALS: BP 109/69
== END 2019-06-14 01:50 | disposition home or self-care (01) ==
LOC: D.ER 20:47
PROVIDERS: Family Medicine
DX: R07.9 Chest pain, unspecified (principal); F41.9 Anxiety disorder, unspecified; E87.6 Hypokalemia; I10 Essential (primary) hypertension; Z72.0 Tobacco use; E07.9 Disorder of thyroid, unspecified

== ENCOUNTER 2019-06-15 12:25 | Day surgery (SDC) | payer MEDICAID ==
[~2019-06-15] VITALS: Ht 157.5 cm; Wt 93.2 kg
[2019-06-15 13:05] LABS: HEMATOCRIT 39.4 % (36.0-48.0); HEMOGLOBIN 13.2 g/dL (12-16); LYMPHOCYTES 20.6 % (15-50); MCH 29.5 pg (26.0-34.0); MCHC 33.5 g/dL (31.0-37.0); MCV 87.9 fL (80.0-100.0); MEAN PLATELET VOLUME 10.1 fL (7.4-10.4); NEUTROPHILS 73.7 % (40-80); PLATELET COUNT 317 10x3/uL (130-400); RBC 4.48 10x6/uL (4.00-5.40); RDW 12.9 % (11.5-14.5); WBC 11.1 10x3/uL (4.8-10.8)
[2019-06-15 13:10] LABS: ANION GAP 14.5 mmol/L (8-16); CALCIUM 8.8 mg/dL (8.5-10.1); CARBON DIOXIDE 27.6 mmol/L (21.0-32.0)
[2019-06-15 13:11] LABS: POTASSIUM - SERUM 4.1 mmol/L (3.5-5.1)
[2019-06-15 13:48] VITALS: BP 121/82; Ht 157.5 cm; Wt 93.2 kg
--- NOTE | 2019-06-16 12:06 | OP ---
PATIENT NAME: NATANAEL DREW MEDICAL RECORD: [id number] :80 LOCATION:[facility] ADMISSION DATE: SURGEON: MAXIM RAMIREZ DO DATE OF OPERATION: 06/15/2019 PROCEDURE: Colonoscopy with polypectomy and random biopsies. INDICATIONS FOR PROCEDURE: Unspecified abdominal pain and abnormal CT with lymphadenopathy noted. SCOPE: Olympus video pediatric colonoscope. MEDICATIONS: Propofol 350 mg IV per anesthesia. WITHDRAWAL TIME: 9 minutes. ESTIMATED BLOOD LOSS: Minimal. COMPLICATIONS: None. FINDINGS: Informed consent was given. The patient was made comfortable with the above medication. After reaching an adequate level of sedation by slow IV push, the patient was placed on her left side. A digital rectal examination was performed and was normal. The endoscope was then advanced under direct visualization through the rectum to the cecum and terminal ileum. The endoscope was slowly withdrawn and mucosa was carefully examined. The prep quality was good. There were 3 polyps visualized on today's examination. They were all benign appearing and sessile and ranged in size from 3-5 mm in diameter. They were all located in the sigmoid colon. They were all removed using hot forceps. There were no diverticula visualized on today's examination. The mucosa appeared normal throughout the entire colon and terminal ileum. Random biopsies were taken with cold forceps from the colon to submit for histopathology and to rule out the presence of microscopic colitis. Retroflexion was performed in the rectum with visualization of a normal appearing rectal wall. The endoscope was withdrawn from the patient. The patient tolerated the procedure well and there were no complications. IMPRESSION: 1. Three sigmoid polyps as described above, removed using hot forceps. 2. Otherwise, normal colon to terminal ileum. PLAN AND RECOMMENDATIONS: 1. Discharge home when recovery parameters are met. 2. Follow up biopsy specimen results. 3. High fiber diet. 4. Supplement diet with 1 tablespoon of fiber daily. 5. Proceed with upper endoscopy as scheduled. TRANSINT:[id number] Voice Confirmation ID: [id number] DOCUMENT ID: [id number] OPERATIVE REPORT [id number] NATANAEL DREW MAXIM RAMIREZ DO at 1206 CC: [id number] DICTATION DATE: 06/15/19 1548 INDUSTRIAL ACCOUNTANT: 06/15/19 683 [facility] 06/15/19 [facility] [address] [facility] [place] [address]
== END 2019-06-15 16:25 | disposition home or self-care (01) ==
LOC: D.OPS 12:25
PROVIDERS: Anesthesiology; ATTEND Internal Medicine Gastroenterology
DX: R10.9 Unspecified abdominal pain (principal); R59.1 Generalized enlarged lymph nodes

== ENCOUNTER 2019-08-11 23:04 | Emergency (ER) | payer MEDICAID ==
[~2019-08-11] VITALS: Ht 157.5 cm; Wt 93.2 kg
[2019-08-11 23:09] VITALS: Ht 157.5 cm; Wt 93.2 kg
[2019-08-11 23:30] LABS: BASOPHILS 0.3 % (0-2); EOSINOPHILS 1.3 % (0-7); HEMATOCRIT 43.2 % (36.0-48.0); HEMOGLOBIN 14.2 g/dL (12-16); IMMATURE GRANULOCYTES 0.6 % (0-5); LYMPHOCYTES 21.8 % (15-50); MCH 28.4 pg (26.0-34.0); MCHC 32.9 g/dL (31.0-37.0); MCV 86.4 fL (80.0-100.0); MEAN PLATELET VOLUME 10.8 fL (7.4-10.4); MONOCYTES 7.9 % (2-11); NEUTROPHILS 68.1 % (40-80); RDW 13.6 % (11.5-14.5)
[2019-08-11 23:33] LABS: PLATELET COUNT 415 10x3/uL (130-400)
[2019-08-11 23:33] LABS: APPEARANCE CLEAR (CLEAR); BILIRUBIN NEGATIVE (NEGATIVE); COLOR YELLOW (YELLOW); GLUCOSE NEGATIVE (NEGATIVE); KETONE NEGATIVE (NEGATIVE); NITRITE NEGATIVE (NEGATIVE); PROTEIN NEGATIVE (NEGATIVE); UROBILINOGEN NORMAL (NORMAL)
[2019-08-11 23:50] LABS: ANION GAP 12.3 mmol/L (8-16); CALCIUM 10.4 mg/dL (8.5-10.1); CARBON DIOXIDE 29.7 mmol/L (21.0-32.0)
[2019-08-11 23:56] LABS: BILIRUBIN - TOTAL 0.32 mg/dL (0.2-1.3); PROTEIN - SERUM 8.1 g/dL (6.4-8.2)
[2019-08-12 00:19] LABS: CKMB 0.2 U/L (0.0-3.6); CREATINE KINASE 55 UL (21-215)
[2019-08-12 00:29] LABS: TROPONIN-I < 0.017 ng/mL (0.000-0.060)
[2019-08-12 00:36] LABS: APTT 30.2 SECONDS (22.8-39.4); INR 0.86 (0.85-1.17); PROTIME 11.8 SECONDS (11.6-15.0)
[2019-08-12] MEDS ORDERED: BUTALB-APAP-CA1 EACH PO (00:56)
[2019-08-12 01:52] VITALS: BP 129/80
== END 2019-08-12 01:52 | disposition home or self-care (01) ==
LOC: D.ER 23:04
PROVIDERS: Emergency Medicine
DX: D72.829 Elevated white blood cell count, unspecified (principal); R51 Headache; E07.9 Disorder of thyroid, unspecified; I10 Essential (primary) hypertension; J45.909 Unspecified asthma, uncomplicated; K21.9 Gastro-esophageal reflux disease without esophagitis; Z72.0 Tobacco use; R53.81 Other malaise

== ENCOUNTER 2020-01-30 01:22 | Emergency (ER) | payer MEDICAID ==
[~2020-01-30] VITALS: Ht 157.5 cm; Wt 77.3 kg
[~2020-01-30 01:22] MED LIST changes: +BUTALB-APAP-CA1 EACH PO
[2020-01-30 01:39] VITALS: Ht 157.5 cm; Wt 77.3 kg
[2020-01-30] MEDS ORDERED: ATENOLOL (01:57)
[2020-01-30 02:18] VITALS: BP 126/74
== END 2020-01-30 02:17 | disposition home or self-care (01) ==
LOC: D.ER 01:22
DX: R07.89 Other chest pain (principal); R06.02 Shortness of breath

== ENCOUNTER 2020-02-03 14:58 | Emergency (ER) | payer MEDICAID ==
[~2020-02-03] VITALS: Ht 157.5 cm; Wt 99.5 kg
[~2020-02-03 14:58] MED LIST changes: +ATENOLOL
[2020-02-03 15:03] VITALS: Ht 157.5 cm; Wt 99.5 kg
[2020-02-03 15:31] LABS: BASOPHILS 0.3 % (0-2); EOSINOPHILS 1.4 % (0-7); HEMATOCRIT 40.2 % (36.0-48.0); HEMOGLOBIN 13.1 g/dL (12-16); IMMATURE GRANULOCYTES 0.6 % (0-5); LYMPHOCYTES 19.8 % (15-50); MCHC 32.6 g/dL (31.0-37.0); MCV 89.1 fL (80.0-100.0); MEAN PLATELET VOLUME 10.5 fL (7.4-10.4); MONOCYTES 7.1 % (2-11); NEUTROPHILS 70.8 % (40-80); PLATELET COUNT 308 10x3/uL (130-400); RBC 4.51 10x6/uL (4.00-5.40); RDW 13.7 % (11.5-14.5); WBC 11.7 10x3/uL (4.8-10.8)
[2020-02-03 15:36] LABS: CALCIUM 9.4 mg/dL (8.5-10.1); CARBON DIOXIDE 31.6 mmol/L (21.0-32.0); CREATININE - SERUM 1.1 mg/dL (0.6-1.3); POTASSIUM - SERUM 3.6 mmol/L (3.5-5.1)
[2020-02-03 15:42] LABS: ALBUMIN 3.8 g/dL (3.4-5.0); BILIRUBIN - TOTAL 0.55 mg/dL (0.2-1.3); MAGNESIUM - SERUM 1.8 mg/dL (1.8-2.4); PROTEIN - SERUM 7.4 g/dL (6.4-8.2)
[2020-02-03 16:33] VITALS: BP 129/76
== END 2020-02-03 16:35 | disposition home or self-care (01) ==
LOC: D.ER 14:58
PROVIDERS: Family Medicine
DX: R20.2 Paresthesia of skin (principal); D72.829 Elevated white blood cell count, unspecified; E20.9 Hypoparathyroidism, unspecified; I10 Essential (primary) hypertension; J45.909 Unspecified asthma, uncomplicated; Z72.0 Tobacco use; K21.9 Gastro-esophageal reflux disease without esophagitis

== ENCOUNTER 2020-02-10 23:20 | Emergency (ER) | payer MEDICAID ==
[~2020-02-10] VITALS: Ht 157.5 cm; Wt 99.5 kg
[2020-02-10 23:23] VITALS: Ht 157.5 cm; Wt 99.5 kg
[2020-02-10] MEDS ORDERED: TENORMIN25 MG PO (23:26)
[2020-02-10] MEDS ORDERED: SYMBICORT 80-10.2 GM INH (23:29)
[2020-02-11 00:30] VITALS: BP 126/83
== END 2020-02-11 00:30 | disposition home or self-care (01) ==
LOC: D.ER 23:20
DX: T46.1X5A Adverse effect of calcium-channel blockers, initial encounter (principal); I10 Essential (primary) hypertension; K21.9 Gastro-esophageal reflux disease without esophagitis; J45.909 Unspecified asthma, uncomplicated; Z72.0 Tobacco use

== ENCOUNTER 2020-03-01 21:46 | Emergency (ER) | payer MEDICAID ==
[~2020-03-01] VITALS: Ht 157.5 cm; Wt 99.5 kg
[~2020-03-01 21:46] MED LIST changes: +SYMBICORT 80-10.2 GM INH; +TENORMIN25 MG PO
[2020-03-01 21:55] VITALS: Ht 157.5 cm; Wt 99.5 kg
[2020-03-01 22:27] LABS: BASOPHILS 0.2 % (0-2); EOSINOPHILS 1.1 % (0-7); HEMATOCRIT 39.9 % (36.0-48.0); HEMOGLOBIN 13.1 g/dL (12-16); IMMATURE GRANULOCYTES 0.6 % (0-5); LYMPHOCYTES 21.5 % (15-50); MCH 29.2 pg (26.0-34.0); MCHC 32.8 g/dL (31.0-37.0); MCV 89.1 fL (80.0-100.0); MEAN PLATELET VOLUME 10.3 fL (7.4-10.4); NEUTROPHILS 68.6 % (40-80); PLATELET COUNT 317 10x3/uL (130-400); RBC 4.48 10x6/uL (4.00-5.40); RDW 13.3 % (11.5-14.5); WBC 13.3 10x3/uL (4.8-10.8)
[2020-03-01 22:36] LABS: CALC OSMOLALITY 276 mosm/kg (275-300); CALCIUM 9.4 mg/dL (8.5-10.1); CHLORIDE - SERUM 103 mmol/L (98-107); CREATININE - SERUM 1.1 mg/dL (0.6-1.3); GLUCOSE 103 mg/dL (74-106); POTASSIUM - SERUM 3.7 mmol/L (3.5-5.1); SODIUM 139 mmol/L (136-145); UREA NITROGEN 11 mg/dL (7-18); eGFR NON AFRICAN AMERICAN 59 mL/min (90-120)
[2020-03-01 22:37] LABS: BILIRUBIN NEGATIVE (NEGATIVE); GLUCOSE NEGATIVE (NEGATIVE); KETONE NEGATIVE (NEGATIVE); NITRITE NEGATIVE (NEGATIVE); UROBILINOGEN NORMAL (NORMAL)
[2020-03-01 22:51] LABS: ALBUMIN 3.8 g/dL (3.4-5.0); ALKALINE PHOSPHATASE 59 U/L (30-120); ALT (SGPT) 25 U/L (10-68); BILIRUBIN - TOTAL 0.31 mg/dL (0.2-1.3); MAGNESIUM - SERUM 1.8 mg/dL (1.8-2.4); PROTEIN - SERUM 7.4 g/dL (6.4-8.2); THYROID STIMULATING HORMONE 1.61 uIU/mL (0.36-3.74); TROPONIN-I < 0.017 ng/mL (0.000-0.060)
[2020-03-01 22:59] LABS: HCG SERUM NEGATIVE (NEGATIVE)
[2020-03-01] MEDS ORDERED: AUGMENTIN 875-11 TAB PO (23:25)
[2020-03-01] MEDS ORDERED: IPRATROPIUM BRO30 M1 NASAL (23:25)
[2020-03-01] MEDS ORDERED: MECLIZINE HCL25 MG PO (23:25)
[2020-03-02 00:19] VITALS: BP 139/90
== END 2020-03-02 00:19 | disposition home or self-care (01) ==
LOC: D.ER 21:46
PROVIDERS: Emergency Medicine
DX: R42 Dizziness and giddiness (principal); D72.829 Elevated white blood cell count, unspecified; J01.00 Acute maxillary sinusitis, unspecified; E07.9 Disorder of thyroid, unspecified; Z72.0 Tobacco use

== ENCOUNTER → 2020-04-09 09:24 | Outpatient (CLI) | payer MEDICAID ==
[2020-03-01 21:55] VITALS: BMI 40.1
[~2020-04-09 09:24] MED LIST changes: +IPRATROPIUM BRO30 M1 NASAL; +MECLIZINE HCL25 MG PO
== END | disposition home or self-care (01) ==
LOC: D.US 03-28 13:00
PROVIDERS: ATTEND Internal Medicine Nephrology
DX: N18.3 Chronic kidney disease, stage 3 (moderate) (principal); E83.52 Hypercalcemia; E21.3 Hyperparathyroidism, unspecified

== ENCOUNTER 2020-10-27 21:31 | Emergency (ER) | payer MEDICAID ==
[~2020-10-27] VITALS: Ht 157.5 cm; Wt 102.3 kg
[~2020-10-27 21:31] MED LIST changes: +DICLOFENAC SODI50 MG PO; +ZANAFLEX4 MG PO
[2020-10-27 21:34] VITALS: Ht 157.5 cm; Wt 102.3 kg
[2020-10-27 22:17] LABS: BASOPHILS 0.4 % (0-2); EOSINOPHILS 1.3 % (0-7); HEMATOCRIT 39.1 % (36.0-48.0); HEMOGLOBIN 12.4 g/dL (12-16); IMMATURE GRANULOCYTES 0.7 % (0-5); LYMPHOCYTE ABS# 1.62 10x3/uL (1.18-3.74); LYMPHOCYTES 14.7 % (15-50); MCHC 31.7 g/dL (31.0-37.0); MCV 85.2 fL (80.0-100.0); MONOCYTES 7.2 % (2-11); NEUTROPHIL ABS# 8.32 10x3/uL (1.56-6.13); NEUTROPHILS 75.7 % (40-80); PLATELET COUNT 372 10x3/uL (130-400); RBC 4.59 10x6/uL (4.00-5.40); RDW 14.1 % (11.5-14.5)
[2020-10-27 22:21] LABS: INFLUENZA TYPE A NEGATIVE (NEGATIVE); INFLUENZA TYPE B NEGATIVE (NEGATIVE); SARS-CoV-2 ANTIGEN NEGATIVE- SARS-COV-2 (NEGATIVE)
[2020-10-27 22:22] LABS: ANION GAP 13.9 mmol/L (8-16); CALCIUM 8.8 mg/dL (8.5-10.1); CARBON DIOXIDE 26.8 mmol/L (21.0-32.0); CREATININE - SERUM 0.9 mg/dL (0.6-1.3); POTASSIUM - SERUM 3.7 mmol/L (3.5-5.1)
[2020-10-27 22:28] LABS: ALBUMIN 3.7 g/dL (3.4-5.0); BILIRUBIN - TOTAL 0.38 mg/dL (0.2-1.3); PROTEIN - SERUM 7.3 g/dL (6.4-8.2)
[2020-10-27] MEDS ORDERED: HYDROCODON-ACE1 EAC7 PO (22:44)
[2020-10-27] MEDS ORDERED: OMNICEF300 MG PO (22:44)
[2020-10-27] MEDS ORDERED: MEDROL DOSE PACK4 MG PO (22:44)
[2020-10-27] MEDS ORDERED: SCOT-TUSSI10 MG/5 ML PO (23:14)
[2020-10-27 23:15] VITALS: BP 125/80
[2020-10-27] MEDS ORDERED: GUAIFEN-CODEINE10 ML PO (23:15)
== END 2020-10-27 23:16 | disposition home or self-care (01) ==
LOC: D.ER 21:31
PROVIDERS: Emergency Medicine
DX: J20.9 Acute bronchitis, unspecified (principal)